=== PATIENT | female | born 1985 | race American Indian/Alaskan Native ===

== ENCOUNTER 2016-06-28 09:35 | Emergency (ER) | payer SELFPAY ==
[2016-06-28 10:06] VITALS: BP 108/74
--- NOTE | 2016-07-01 01:23 | ED Elopement Review ---
ED Pt Elopement review - Call Back decision Pt Call Back Decision: Pt to F/U with PMD
== END 2016-06-28 11:00 | disposition left against medical advice (07) ==
LOC: ED 09:35
DX: R07.9 Chest pain, unspecified (principal); R05 Cough; M79.601 Pain in right arm; R51 Headache; M79.1 Myalgia; Z53.21 Procedure and treatment not carried out due to patient leaving prior to being seen by health care provider
CPT/HCPCS: 93005; 93010

== ENCOUNTER 2016-12-14 09:13 | Emergency (ER) | payer SELFPAY ==
[2016-12-14 09:24] VITALS: BP 113/79
--- NOTE | 2016-12-14 22:10 | Emergency Department Report ---
Entered by LEON ARMANDO, acting as scribe for HAMILTON SAPP PAC. ED Allergic Reaction HPI - General Chief complaint: Allergic Reaction Stated complaint: POSSIBLE ALLERGIC REACTION,LEFT ARM PAIN Time Seen by Provider: 12/14/16 09:52 Source: patient Mode of arrival: Ambulatory Limitations: No Limitations - History of Present Illness Initial Comments: 31 y/o female with no significant PMHx presents to the ED c/o an allergic reaction that began morning. Patient states she is having an allergic reaction to taking someone else's prescribed Penicillin last night secondary her lower lip piercing becoming infected. Associated symptom includes lower lip swelling and 7/10 throbbing left upper side pain, but she denies any recent left side trauma, chest pain, SOB, rash, fever, chills, throat closing sensation, itching , nausea, vomiting, left arm pain, numbness, and tingling. Rates lower lip pain a 10/10 in severity, which she describes as aching in quality. Aggravated with movement and alleviated with nothing. Patient states she noticed green purulent drainage. Denies PMHx of cardiac problems. Denies taking any medication to relieve symptoms. LMP 11/21/2016. NKDA. [place] Complaint: allergic reaction -: This morning Exposure: medication (Penicillin) Symptoms: lip swelling (lower lip). denies: rash, itching, facial swelling, difficulty swallowing, difficulty breathing, orolingual swelling, hoarseness, syncopy, dizziness, nausea, vomiting, abdominal pain Severity: moderate Treatment Prior to Arrival: none Previous Allergy History: none - Related Data Previous Rx's Medication Instructions Recorded Last Taken Type metroNIDAZOLE [Flagyl] 500 mg PO BID #20 tablet 04/18/13 Unknown Rx traMADol [Ultram] 50 mg PO Q4HR PRN #15 tablet 04/18/13 Unknown Rx Doxycycline [Vibramycin CAP] 100 mg PO BID #30 capsule 09/05/13 Unknown Rx Acetamin/Codeine 120-12Mg/5 ml 5 ml PO TID PRN #30 ml 12/09/13 Unknown Rx [Tylenol/Codeine] Penicillin Vk [Veetids TAB] 500 mg PO QID #40 tablet 12/09/13 Unknown Rx Amoxicillin [Trimox CAP] 500 mg PO Q8H #30 capsule 06/23/14 Unknown Rx Docusate Sodium [Colace] 100 mg PO BID #40 capsule 06/23/14 Unknown Rx Famotidine [Pepcid] 20 mg PO BID #40 tablet 06/23/14 Unknown Rx predniSONE [Deltasone] 20 mg PO QDAY #5 tab 06/23/14 Unknown Rx Nitrofurantoin [place]/M-Cryst 100 mg PO Q12HR #14 capsule 10/13/14 Unknown Rx [Macrobid] Pnv95/Ferrous Fumarate/FA 1 each PO QDAY #90 tablet 10/13/14 Unknown Rx [ Vitamins] metroNIDAZOLE 0.75% [Metrogel 1 applicatio TP BID #1 tube 10/13/14 Unknown Rx 0.75%] Ondansetron [Zofran TAB] 4 mg PO Q6HR PRN #15 tablet 01/01/15 Unknown Rx Ibuprofen [Motrin 600 MG tab] 600 mg PO Q6HR PRN #30 tablet 05/28/15 Unknown Rx Azithromycin [Zithromax Z-PHU] 250 mg PO DAILY #6 tablet 12/14/16 Unknown Rx predniSONE [Deltasone] 20 mg PO QDAY #5 tab 12/14/16 Unknown Rx Allergies Allergy/AdvReac Type Severity Reaction Status Date / Time No Known Allergies Allergy Unverified 04/05/13 09:57 ED Review of Systems Comment: All other systems reviewed and negative Constitutional: denies: chills, fever Eyes: denies: eye pain, eye discharge, vision change ENT: other (lower lip swelling). denies: ear pain, throat pain Respiratory: denies: cough, orthopnea, shortness of breath, SOB with exertion, SOB at rest, stridor, wheezing Cardiovascular: denies: chest pain, palpitations, dyspnea on exertion, orthopnea , edema, syncope, paroxysmal nocturnal dyspnea Endocrine: no symptoms reported Gastrointestinal: denies: abdominal pain, nausea, vomiting, diarrhea Genitourinary: denies: urgency, dysuria, discharge Musculoskeletal: arthralgia (LT upper side pain). denies: back pain, joint swelling, myalgia Skin: denies: rash, lesions Neurological: denies: headache, weakness, numbness, paresthesias, confusion, abnormal gait, vertigo Psychiatric: denies: anxiety, depression Hematological/Lymphatic: denies: easy bleeding, easy bruising ED Past Medical Hx - Past Medical History Previous Medical History?: Yes Hx Hypertension: No Hx Heart Attack/AMI: No Hx Diabetes: No Hx Deep Vein Thrombosis: No Hx Renal Disease: No Hx Sickle Cell Disease: No Hx Seizures: No Hx Asthma: No Hx HIV: No Additional medical history: tubal 2006 - Surgical History Past Surgical History?: Yes Additional Surgical History: "tubal" "thigh surgery" - Family History Family history: no significant - Social History Smoking Status: Current Every Day Smoker Substance Use Type: Alcohol, Non Opiate Pain - Medications Home Medications: Home Medications Medication Instructions Recorded Confirmed Last Taken Type metroNIDAZOLE [Flagyl] 500 mg PO BID #20 tablet 04/18/13 05/28/15 Unknown Rx traMADol [Ultram] 50 mg PO Q4HR PRN #15 tablet 04/18/13 05/28/15 Unknown Rx Doxycycline [Vibramycin CAP] 100 mg PO BID #30 capsule 09/05/13 05/28/15 Unknown Rx Acetamin/Codeine 120-12Mg/5 ml 5 ml PO TID PRN #30 ml 12/09/13 05/28/15 Unknown Rx [Tylenol/Codeine] Penicillin Vk [Veetids TAB] 500 mg PO QID #40 tablet 12/09/13 05/28/15 Unknown Rx Amoxicillin [Trimox CAP] 500 mg PO Q8H #30 capsule 06/23/14 05/28/15 Unknown Rx Docusate Sodium [Colace] 100 mg PO BID #40 capsule 06/23/14 05/28/15 Unknown Rx Famotidine [Pepcid] 20 mg PO BID #40 tablet 06/23/14 05/28/15 Unknown Rx predniSONE [Deltasone] 20 mg PO QDAY #5 tab 06/23/14 05/28/15 Unknown Rx Nitrofurantoin [place]/M-Cryst 100 mg PO Q12HR #14 capsule 10/13/14 05/28/15 Unknown Rx [Macrobid] Pnv95/Ferrous Fumarate/FA 1 each PO QDAY #90 tablet 10/13/14 05/28/15 Unknown Rx [ Vitamins] metroNIDAZOLE 0.75% [Metrogel 1 applicatio TP BID #1 tube 10/13/14 05/28/15 Unknown Rx 0.75%] Ondansetron [Zofran TAB] 4 mg PO Q6HR PRN #15 tablet 01/01/15 05/28/15 Unknown Rx Ibuprofen [Motrin 600 MG tab] 600 mg PO Q6HR PRN #30 tablet 05/28/15 Unknown Rx Azithromycin [Zithromax Z-PHU] 250 mg PO DAILY #6 tablet 12/14/16 Unknown Rx predniSONE [Deltasone] 20 mg PO QDAY #5 tab 12/14/16 Unknown Rx ED Physical Exam - General Limitations: No Limitations General appearance: alert, in no apparent distress - Head Head exam: Present: atraumatic, normocephalic - Eye Eye exam: Present: normal appearance, PERRL, EOMI. Absent: scleral icterus, conjunctival injection, nystagmus, periorbital swelling, periorbital tenderness Pupils: Present: normal accommodation - ENT ENT exam: Present: normal orophraynx, mucous membranes moist, TM's normal bilaterally, normal external ear exam, other (LT lower lip has an abrasion near piercing with mild swelling and no purulent drainage noted). Absent: normal exam - Expanded ENT Exam Expanded Ear exam: Present: normal external inspection Mouth exam: Present: normal external inspection, tongue normal, other (oral airway is patent, uvula is midline). Absent: drooling, trismus, muffled voice, tongue elevation, laceration Teeth exam: Present: normal inspection Throat exam: Positive: normal inspection. Negative: tonsillar erythema, tonsillomegaly, tonsillar exudate, R peritonsillar mass, L peritonsillar mass - Neck Neck exam: Present: normal inspection, full ROM. Absent: tenderness, meningismus, lymphadenopathy, thyromegaly - Respiratory Respiratory exam: Present: normal lung sounds bilaterally, chest wall tenderness (mild lateral chest wall area). Absent: respiratory distress, wheezes, rales, rhonchi, stridor, accessory muscle use, decreased breath sounds - Cardiovascular Cardiovascular Exam: Present: regular rate, normal rhythm, normal heart sounds. Absent: systolic murmur, diastolic murmur, rubs, gallop - GI/Abdominal GI/Abdominal exam: Present: soft, normal bowel sounds. Absent: distended, tenderness, guarding, rebound, rigid - Extremities Exam Extremities exam: Present: normal inspection, full ROM (of both shoulder areas, sensation intact, mild ttp at the left lateral chest wall region), normal capillary refill. Absent: tenderness, pedal edema, joint swelling, calf tenderness - Back Exam Back exam: Present: normal inspection, full ROM. Absent: tenderness, CVA tenderness (R), CVA tenderness (L), muscle spasm, paraspinal tenderness, vertebral tenderness, rash noted - Neurological Exam Neurological exam: Present: alert, oriented X3, CN II-XII intact, normal gait, reflexes normal. Absent: motor sensory deficit - Psychiatric Psychiatric exam: Present: normal affect, normal mood - Skin Skin exam: Present: warm (no redness, swelling, or bruisin noted at the site), dry, intact, normal color. Absent: rash ED Course Vital Signs 12/14/16 09:19 Temperature 98.1 F Pulse Rate 60 Respiratory 18 Rate Blood Pressure 113/79 O2 Sat by Pulse 99 Oximetry ED Medical Decision Making - Medical Decision Making Pt was given prednisone 20 mg for the next 5 days to help bring some of the swelling around the lip, secondary to the impact of the piercing. Pt was also given azithromycin for the infection of the lip, per patient she developed an allergic reaction to PCN. Pt has reported left sided chest wall pain- appears to be reproducible, pt states that such pain comes and goes throughout her body. I had advised further cardiac and pulmonary work-up at this time, pt denied and signed AMA form for conducting EKG, CXR, and further cardiac/pulm work-up I have explained to her the risks of refusing she reported understanding. Pt was discharged from the ED in stable condition, vitals were stable, alert and oriented, and in no resp distress. ED Disposition Clinical Impression: Infection of lip Allergic Qualifiers: Encounter type: initial encounter Qualified Code(s): T78.40XA - Allergy, unspecified, initial encounter Disposition: TO HOME OR SELFCARE Is pt being admited?: No Does the pt Need Aspirin: No Condition: Stable Instructions: Acute Wound Care (ED), Antibiotic Medication Allergy (ED) Additional Instructions: Please avoid all NSAIDs while taking prednisone. Please follow- up with PCP within 3-5 days. Please return to the ED with any acute worsening such as chest pain, SOB, fever, chills, numbness, tingling, or left sided chest pain/ arm pain. Prescriptions: Azithromycin [Zithromax Z-PHU] 250 mg PO DAILY #6 tablet predniSONE [Deltasone] 20 mg PO QDAY #5 tab Referrals: PRIMARY CARE, [Primary Care Provider] - 3-5 Days [facility] [Outside] - 3-5 Days [facility] [Outside] - 3-5 Days Forms: Work/School Release Form(ED) This documentation as recorded by the TR hays JASMINE,accurately reflects the service I personally performed and the decisions made by me,HAMILTON SAPP, PAC.
== END 2016-12-14 11:32 | disposition home or self-care (01) ==
LOC: ED 09:13
DX: T78.40XA Allergy, unspecified, initial encounter (principal); K13.0 Diseases of lips; F17.200 Nicotine dependence, unspecified, uncomplicated
CPT/HCPCS: 81025; 99282

== ENCOUNTER 2017-05-29 11:47 | Emergency (ER) | payer SELFPAY ==
[2017-05-29 11:54] VITALS: BP 108/70
--- NOTE | 2017-05-29 14:21 | Emergency Department Report ---
Chief Complaint: Urogenital-Female Stated Complaint: ABDOMINAL PAIN Time Seen by Provider: 05/29/17 14:17 - HPI History of Present Illness: 31-year-old female presents with right-sided pelvic pain, sharp in nature, since last night. Mild discharge, no dysuria or vaginal bleeding. No past medical history other than previous ectopic tubal in 2006. She has not taken anything for her symptoms. - ROS Review of Systems: Patient has positive for pelvic pain and vaginal discharge. Patient is negative for dysuria, vaginal bleeding, fever, nausea, vomiting. - Exam Vital Signs: Vital Signs 05/29/17 11:50 Temperature 98.5 F Pulse Rate 67 Respiratory 18 Rate Blood Pressure 108/70 O2 Sat by Pulse 100 Oximetry Physical Exam: She is awake and alert and does not appear in any acute distress. MSE screening note: Focused history and physical exam performed. Due to findings the following was ordered: The patient will have a urinalysis, urine test and will need a pelvic/ transvaginal ultrasound. She will stay on the fast-track side of will be seen by one of the mid-level providers. ED Disposition for MSE Condition: Stable
--- NOTE | 2017-05-29 14:24 | Emergency Department Report ---
ED Female HPI - General Chief complaint: Urogenital-Female Stated complaint: ABDOMINAL PAIN Time Seen by Provider: 05/29/17 14:17 Source: patient Mode of arrival: Ambulatory Limitations: No Limitations - History of Present Illness Initial comments: 31-year-old female past medical history ovarian cysts presents with complaint of dull achy right-sided pelvic pain since last night. Denies any nausea vomiting fever or chills dysuria or increased urinary frequency purulent vaginal discharge or drainage alan foul-smelling urine. Patient is awake alert and oriented 3. Not in acute distress. MD Complaint: vaginal discharge, pelvic pain -: During the night, Last night Location: suprapubic Severity scale (0 -10): 5 Quality: dull Consistency: intermittent Improves with: none Are you Now?: No Last Menstrual Period: 04/21/17 EDC: 01/26/18 Associated Symptoms: denies other symptoms - Related Data Sexually active: Yes Previous Rx's Medication Instructions Recorded Last Taken Type metroNIDAZOLE [Flagyl] 500 mg PO BID #20 tablet 04/18/13 Unknown Rx traMADol [Ultram] 50 mg PO Q4HR PRN #15 tablet 04/18/13 Unknown Rx Doxycycline [Vibramycin CAP] 100 mg PO BID #30 capsule 09/05/13 Unknown Rx Acetamin/Codeine 120-12Mg/5 ml 5 ml PO TID PRN #30 ml 12/09/13 Unknown Rx [Tylenol/Codeine] Penicillin Vk [Veetids TAB] 500 mg PO QID #40 tablet 12/09/13 Unknown Rx Amoxicillin [Trimox CAP] 500 mg PO Q8H #30 capsule 06/23/14 Unknown Rx Docusate Sodium [Colace] 100 mg PO BID #40 capsule 06/23/14 Unknown Rx Famotidine [Pepcid] 20 mg PO BID #40 tablet 06/23/14 Unknown Rx predniSONE [Deltasone] 20 mg PO QDAY #5 tab 06/23/14 Unknown Rx Nitrofurantoin [place]/M-Cryst 100 mg PO Q12HR #14 capsule 10/13/14 Unknown Rx [Macrobid] Pnv95/Ferrous Fumarate/FA 1 each PO QDAY #90 tablet 10/13/14 Unknown Rx [ Vitamins] metroNIDAZOLE 0.75%(NF) [Metrogel 1 applicatio TP BID #1 tube 10/13/14 Unknown Rx 0.75%] Ondansetron [Zofran TAB] 4 mg PO Q6HR PRN #15 tablet 01/01/15 Unknown Rx Ibuprofen [Motrin 600 MG tab] 600 mg PO Q6HR PRN #30 tablet 05/28/15 Unknown Rx Azithromycin [Zithromax Z-PHU] 250 mg PO DAILY #6 tablet 12/14/16 Unknown Rx predniSONE [Deltasone] 20 mg PO QDAY #5 tab 12/14/16 Unknown Rx Acetaminophen/Codeine [Tylenol 1 tab PO Q6H PRN #6 tab 05/29/17 Unknown Rx /Codeine # 3 tab] Ibuprofen [Motrin] 800 mg PO Q8HR PRN #30 tablet 05/29/17 Unknown Rx Allergies Allergy/AdvReac Type Severity Reaction Status Date / Time No Known Allergies Allergy Unverified 04/05/13 09:57 ED Review of Systems ROS: Stated complaint: ABDOMINAL PAIN Other details as noted in HPI Constitutional: denies: chills, fever Eyes: denies: eye pain, eye discharge, vision change ENT: denies: ear pain, throat pain Respiratory: denies: cough, shortness of breath, wheezing Cardiovascular: denies: chest pain, palpitations Endocrine: no symptoms reported Gastrointestinal: denies: abdominal pain, nausea, diarrhea Genitourinary: denies: urgency, dysuria, discharge Musculoskeletal: denies: back pain, joint swelling, arthralgia Skin: denies: rash, lesions Neurological: denies: headache, weakness, paresthesias Psychiatric: denies: anxiety, depression Hematological/Lymphatic: denies: easy bleeding, easy bruising ED Past Medical Hx - Past Medical History Hx Hypertension: No Hx Heart Attack/AMI: No Hx Diabetes: No Hx Deep Vein Thrombosis: No Hx Renal Disease: No Hx Sickle Cell Disease: No Hx Seizures: No Hx Asthma: No Hx HIV: No Additional medical history: tubal 2006 - Surgical History Additional Surgical History: "tubal" "thigh surgery" - Social History Smoking Status: Never Smoker Substance Use Type: None - Medications Home Medications: Home Medications Medication Instructions Recorded Confirmed Last Taken Type metroNIDAZOLE [Flagyl] 500 mg PO BID #20 tablet 04/18/13 05/28/15 Unknown Rx traMADol [Ultram] 50 mg PO Q4HR PRN #15 tablet 04/18/13 05/28/15 Unknown Rx Doxycycline [Vibramycin CAP] 100 mg PO BID #30 capsule 09/05/13 05/28/15 Unknown Rx Acetamin/Codeine 120-12Mg/5 ml 5 ml PO TID PRN #30 ml 12/09/13 05/28/15 Unknown Rx [Tylenol/Codeine] Penicillin Vk [Veetids TAB] 500 mg PO QID #40 tablet 12/09/13 05/28/15 Unknown Rx Amoxicillin [Trimox CAP] 500 mg PO Q8H #30 capsule 06/23/14 05/28/15 Unknown Rx Docusate Sodium [Colace] 100 mg PO BID #40 capsule 06/23/14 05/28/15 Unknown Rx Famotidine [Pepcid] 20 mg PO BID #40 tablet 06/23/14 05/28/15 Unknown Rx predniSONE [Deltasone] 20 mg PO QDAY #5 tab 06/23/14 05/28/15 Unknown Rx Nitrofurantoin [place]/M-Cryst 100 mg PO Q12HR #14 capsule 10/13/14 05/28/15 Unknown Rx [Macrobid] Pnv95/Ferrous Fumarate/FA 1 each PO QDAY #90 tablet 10/13/14 05/28/15 Unknown Rx [ Vitamins] metroNIDAZOLE 0.75%(NF) [Metrogel 1 applicatio TP BID #1 tube 10/13/14 05/28/15 Unknown Rx 0.75%] Ondansetron [Zofran TAB] 4 mg PO Q6HR PRN #15 tablet 01/01/15 05/28/15 Unknown Rx Ibuprofen [Motrin 600 MG tab] 600 mg PO Q6HR PRN #30 tablet 05/28/15 Unknown Rx Azithromycin [Zithromax Z-PHU] 250 mg PO DAILY #6 tablet 12/14/16 Unknown Rx predniSONE [Deltasone] 20 mg PO QDAY #5 tab 12/14/16 Unknown Rx Acetaminophen/Codeine [Tylenol 1 tab PO Q6H PRN #6 tab 05/29/17 Unknown Rx /Codeine # 3 tab] Ibuprofen [Motrin] 800 mg PO Q8HR PRN #30 tablet 05/29/17 Unknown Rx ED Physical Exam - General Limitations: No Limitations General appearance: alert, in no apparent distress - Head Head exam: Present: atraumatic, normocephalic - Eye Eye exam: Present: normal appearance, PERRL, EOMI - ENT ENT exam: Present: mucous membranes moist - Neck Neck exam: Present: normal inspection - Respiratory Respiratory exam: Present: normal lung sounds bilaterally. Absent: respiratory distress - Cardiovascular Cardiovascular Exam: Present: regular rate, normal rhythm. Absent: systolic murmur, diastolic murmur, rubs, gallop - GI/Abdominal GI/Abdominal exam: Present: soft (abdomen soft nontender nondistended 4 quadrants), normal bowel sounds - External exam: Present: normal external exam Speculum exam: Present: normal speculum exam Bi-manual exam: Present: adnexal tenderness (right-sided adnexal discomfort on deep palpation) - Extremities Exam Extremities exam: Present: normal inspection - Back Exam Back exam: Present: normal inspection - Neurological Exam Neurological exam: Present: alert, oriented X3, CN II-XII intact, normal gait - Psychiatric Psychiatric exam: Present: normal affect, normal mood - Skin Skin exam: Present: warm, dry, intact, normal color. Absent: rash ED Course Vital Signs 05/29/17 11:50 Temperature 98.5 F Pulse Rate 67 Respiratory 18 Rate Blood Pressure 108/70 O2 Sat by Pulse 100 Oximetry ED Medical Decision Making - Lab Data Result diagrams: 05/29/17 14:29 05/29/17 14:29 - Medical Decision Making A/P: Right-sided ovarian cyst 1-Case discussed with Dr. Diaz who also examined and medically screened the patient 2-UA and wet prep unremarkable, GC cultures sent 3-Motrin 800mg when necessary, short course Tylenol 3 when necessary 4- I advised the patient to return to the ED for any inability to tolerate by mouth fevers and chills or temperatures above 100.4 Fahrenheit despite antipyretic use severe sharp abdominal pain unrelieved by Motrin or purulent vaginal discharge with irregular vaginal bleeding. patient stated she understood my instructions Critical care attestation.: If time is entered above; I have spent that time in minutes in the direct care of this critically ill patient, excluding procedure time. ED Disposition Clinical Impression: Pelvic pain Ovarian cyst Qualifiers: Laterality: right Qualified Code(s): N83.201 - Unspecified ovarian cyst, right side Disposition: DC- TO HOME OR SELFCARE Is pt being admited?: No Does the pt Need Aspirin: No Condition: Stable Instructions: Ovarian Cyst (ED) Prescriptions: Acetaminophen/Codeine [Tylenol /Codeine # 3 tab] 1 tab PO Q6H PRN #6 tab PRN Reason: Pain Ibuprofen [Motrin] 800 mg PO Q8HR PRN #30 tablet PRN Reason: Pain Referrals: PRIMARY CARE, [Primary Care Provider] - 3-5 Days [facility] [Provider Group] - 3-5 Days Forms: Work/School Release Form(ED) Time of Disposition: 17:11
[2017-05-29 14:33] LABS: HCG Qualitative,Urine Negative (Negative)
[2017-05-29 14:35] LABS: Bilirubin,Urine NEG (Negative); Blood,Urine NEG (Negative); Color,Urine Yellow (Yellow); Mucus,Urine 3+ /HPF; Protein,Urine <15 mg/dL mg/dL (Negative)
[2017-05-29 14:53] LABS: Basophils % (Auto) 0.6 % (0.0-1.8); Eosinophils # (Auto) 0.1 K/mm3 (0.0-0.4); Eosinophils % (Auto) 1.5 % (0.0-4.3); Hematocrit 43.6 % (30.3-42.9); Lymphocytes % (Auto) 35.3 % (13.4-35.0); Mean Corpuscular HGB Conc 32 % (30-34); Mean Corpuscular Hemoglobin 29 pg (28-32); Mean Corpuscular Volume 90 fl (79-97); Monocytes # (Auto) 0.4 K/mm3 (0.0-0.8); Monocytes % (Auto) 7.7 % (0.0-7.3); Platelet Count 265 K/mm3 (140-440); Red Blood Count 4.85 M/mm3 (3.65-5.03); Red Cell Distribution Width 14.3 % (13.2-15.2)
[2017-05-29 15:14] LABS: BUN/Creatinine Ratio 20; Blood Urea Nitrogen 14 mg/dL (7-17); Calcium 9.2 mg/dL (8.4-10.2); Hemolysis Index 11
--- NOTE | 2017-05-29 16:34 | Ultrasound Report ---
FINAL REPORT EXAM: US PELVIS DUPLEX DOPPLER COMP HISTORY: r-side pelvic pain please assess ovarian blood flow and right lower quadrant pain. LMP 04/21/2017 TECHNIQUE: Ultrasound of the pelvis using transabdominal and transvaginal imaging PRIORS: None. FINDINGS: Uterus: Uterus is elongated in size and normal and homogeneous in echogenicity without focal fibroid formation. The uterus measures 8.4 x 4.8 x 4.3 cm in size. A small 3 cm nabothian cyst in the cervix is seen. Endometrial stripe: Normal and uniform in thickness measuring 8.5 mm. Ovaries: Right ovary appears enlarged in size with normal echogenicity. The left ovary appears normal in size and echogenicity with normal blood flow bilaterally. The right ovary measures 4.7 x 2.0 x 3.3 cm and the left ovary measures 3.3 x 1.4 x 2.3 cm in size. There is an avascular complex cyst in the right ovary measuring 2.5 x 2.1 x 2.4 cm. The ultrasound characteristics contain multiple septations and internal debris. Due to the complexity, follow-up ultrasound 6-12 weeks is recommended. Other: There is no evidence for solid adnexal mass or free fluid in the cul-de-sac seen. IMPRESSION: 1. complex cyst in the right ovary for which follow-up ultrasound in 6-12 weeks is recommended. 2. Arterial and venous blood flow is noted to both ovaries.
[2017-05-29] MEDS ORDERED: MOTRIN PO ONE (17:14)
== END 2017-05-29 17:20 | disposition home or self-care (01) ==
LOC: ED 11:47
DX: N83.201 Unspecified ovarian cyst, right side (principal)
CPT/HCPCS: 36415; 76830; 80048; 81001; 81025; 84702; 85025; 86850; 86900; 86901; 87210; 87591; 93975

== ENCOUNTER 2017-08-08 02:07 | Emergency (ER) | payer SELFPAY | END 2017-08-08 02:15 | disposition left against medical advice (07) | LOC: ED 02:07 | DX: R10.9 Unspecified abdominal pain (principal); Z53.21 Procedure and treatment not carried out due to patient leaving prior to being seen by health care provider ==

== ENCOUNTER 2017-08-08 19:06 | Emergency (ER) | payer SELFPAY ==
[2017-08-08 19:15] VITALS: BP 129/81
[2017-08-08 21:03] LABS: Bilirubin,Urine NEG (Negative); Blood,Urine NEG (Negative); Color,Urine Yellow (Yellow); Mucus,Urine 1+ /HPF; Protein,Urine <15 mg/dL mg/dL (Negative)
[2017-08-08 21:05] LABS: HCG Qualitative,Urine Positive (Negative)
--- NOTE | 2017-08-08 22:25 | Emergency Department Report ---
<GLENNY DEVINE - Last Filed: 08/08/17 22:21> ED Female HPI - General Chief complaint: Urogenital-Female Stated complaint: LOWER ABDOMINAL PAIN Time Seen by Provider: 08/08/17 21:06 Source: patient Mode of arrival: Ambulatory Limitations: No Limitations - History of Present Illness Initial comments: 31-year-old -Polish female comes in complaining of right pelvic pain 1 day, she reports diagnosis of her right ovarian cyst back in May 2017. She denies any bleeding but has a iverson discharge. She reports her last menstrual period was 06/03/2017. Patient reports that she had a tubular ectopic in 2006 fallopian tube intact. She reports no past medical history currently takes no medications and has no known drug allergies. Patient denies any fever chills or nausea no vomiting. MD Complaint: vaginal bleeding, pelvic pain -: days(s) (1) Severity: moderate Severity scale (0 -10): 8 Consistency: intermittent Improves with: none Worsens with: movement Are you Now?: Yes Last Menstrual Period: 06/03/17 EDC: 03/10/18 Associated Symptoms: vaginal discharge, vaginal bleeding (iverson discharge) - Related Data Sexually active: Yes : 4 Para: 1 A: 2 (1 miscarriage and ectopic) Previous Rx's Medication Instructions Recorded Last Taken Type Pnv No.95/Ferrous Fum/Folic AC 1 each PO QDAY #90 tablet 08/08/17 Unknown Rx [ Formula Tablet] Allergies Allergy/AdvReac Type Severity Reaction Status Date / Time No Known Allergies Allergy Unverified 04/05/13 09:57 ED Review of Systems ROS: Stated complaint: LOWER ABDOMINAL PAIN Other details as noted in HPI Constitutional: denies: chills, fever Eyes: denies: eye pain, eye discharge, vision change ENT: denies: ear pain, throat pain Respiratory: denies: cough, shortness of breath, wheezing Cardiovascular: denies: chest pain, palpitations Endocrine: no symptoms reported Gastrointestinal: abdominal pain (right pelvic pain) Genitourinary: denies: urgency, dysuria, discharge Musculoskeletal: denies: back pain, joint swelling, arthralgia Neurological: denies: headache, weakness, paresthesias Psychiatric: denies: anxiety, depression Hematological/Lymphatic: denies: easy bleeding, easy bruising ED Past Medical Hx - Past Medical History Hx Hypertension: No Hx Heart Attack/AMI: No Hx Diabetes: No Hx Deep Vein Thrombosis: No Hx Renal Disease: No Hx Sickle Cell Disease: No Hx Seizures: No Hx Asthma: No Hx HIV: No Additional medical history: tubal 2007, right ovarian cyst - Surgical History Additional Surgical History: "tubal" "thigh surgery" - Social History Smoking Status: Never Smoker Substance Use Type: None - Medications Home Medications: Home Medications Medication Instructions Recorded Confirmed Last Taken Type Pnv No.95/Ferrous Fum/Folic AC 1 each PO QDAY #90 tablet 08/08/17 Unknown Rx [ Formula Tablet] ED Physical Exam - General Limitations: No Limitations General appearance: alert, in no apparent distress - Head Head exam: Present: atraumatic, normocephalic - Eye Eye exam: Present: normal appearance - ENT ENT exam: Present: mucous membranes moist - GI/Abdominal GI/Abdominal exam: Present: soft, tenderness (right lower pelvic pain), normal bowel sounds - Speculum exam: Present: vaginal discharge, cervical discharge Bi-manual exam: Present: adnexal tenderness - Extremities Exam Extremities exam: Present: normal inspection - Neurological Exam Neurological exam: Present: alert, oriented X3 - Psychiatric Psychiatric exam: Present: normal affect, normal mood ED Course Vital Signs 08/08/17 19:12 Temperature 98.5 F Pulse Rate 84 Respiratory 18 Rate Blood Pressure 129/81 O2 Sat by Pulse 100 Oximetry ED Medical Decision Making - Medical Decision Making Has been evaluated by this provider fast track. Urine test came back positive will check hCG Quant which came back greater than 10,000. Ultrasound waiting for results. Patient's had a history of ectopic without loss of fallopian tube. Patient reports that she has a right ovarian cysts. Critical care attestation.: If time is entered above; I have spent that time in minutes in the direct care of this critically ill patient, excluding procedure time. ED Disposition Clinical Impression: BV (bacterial vaginosis), Threatened in first trimester Qualifiers: Weeks of gestation: unspecified Qualified Code(s): Z34.90 - Encounter for supervision of normal , unspecified, unspecified trimester Disposition: DC-01 TO HOME OR SELFCARE Is pt being admited?: No Does the pt Need Aspirin: No Condition: Stable Instructions: Bacterial Vaginosis (ED), Threatened Miscarriage (ED) Additional Instructions: Repeat ultrasound within 1-2 weeks Prescriptions: Pnv No.95/Ferrous Fum/Folic AC [ Formula Tablet] 1 each PO QDAY #90 tablet Referrals: PRIMARY CARE, [Primary Care Provider] - 3-5 Days [facility] [Provider Group] - 3-5 Days [facility] [Provider Group] - 3-5 Days [facility] [Provider Group] - 3-5 Days [facility] [Provider Group] - 3-5 Days <SAUD MARIA - Last Filed: 08/09/17 00:06> ED Medical Decision Making - Medical Decision Making A/P: Pelvic pain, threatened AB versus demise 1- there is an IUP estimated approximately 6 weeks with no visible heart beat 2- I discussed case with ED attending then discussed case with Dr. Jackson educational therapist OBGYN. As per my discussion with Dr. Jackson regarding pts US report and lmp pt advised to repeat hCG and ultrasound within 1-2 weeks. It is possible that heartbeat is not present on US yet at 6 weeks. Patient reports no vaginal bleeding at this time 3-Tylenol when necessary 4- I advised patient to follow up with her DIRECTOR OF BILLING or repeat ultrasound in the ED within 1-2 weeks. I advised her to return for significant bleeding pain nausea and vomiting fevers or chills. Patient stated she understood my instructions. 5-I referred [email or web address] recommendations on BV treatment. I also discussed utility of treatment if pt is asymptomatic. Will refrain from flagyl at this time as pt denies any fishy odor, vaginal itching/pain at this time. I advised her to seek tx for vaginal discharge if she develops these symtpoms. Https:// [email or web address]_type =default&display_[email or web address] ED Disposition Is pt being admited?: No Does the pt Need Aspirin: No Time of Disposition: 00:05
[2017-08-08] MEDS ORDERED: TYLENOL PO ONE (22:53)
--- NOTE | 2017-08-08 23:30 | Ultrasound Report ---
FINAL REPORT PROCEDURE: US OB < = 14 WEEKS FETUS TECHNIQUE: Real-time transabdominal sonography of the uterus, placenta, amniotic fluid, adnexa, and fetus was performed with image documentation. Measurements were obtained to determine age/size. M-mode Doppler was used to document heartbeat. CPT 31851 HISTORY: +abd pain with preg and iverson discharge COMPARISON: Transvaginal OB ultrasound also performed today. FINDINGS: The report for this exam was generated using images from both the transabdominal and the transvaginal OB ultrasound both of which were performed today. A gestational sac with double decidual sign is visualized consistent with an intrauterine . Blunt-rump length measurement of a pole is 3.5 millimeters corresponding to an age is 6 weeks 0 days. Despite persistent imaging no heartbeat is seen. At this age heartbeat is expected. Intrauterine demise is suspected. There is a subchorionic hemorrhage visualized measuring 2 centimeter x 5 millimeter x 6 millimeter. Yolk sac is visualized. No uterine masses are identified. There is a 1.7 centimeter nodule in the right ovary with mild increased echogenicity and a hypoechoic nodule.. 2.8 centimeter heterogeneous cystic nodule seen in the left ovary. This may represent corpus luteum cyst of . Nodule in the left ovary measures 2.8 centimeter. IMPRESSION: Single intrauterine gestation visualized. By crown-rump length measurement estimated age is 6 weeks. Despite persistent imaging no heartbeat is seen suggesting intrauterine demise. Subchorionic hemorrhage is present as described above. Complex cystic structure left ovary may represent corpus luteum cyst of . Possible small hemorrhagic cyst right ovary.
--- NOTE | 2017-08-08 23:32 | Ultrasound Report ---
FINAL REPORT PROCEDURE: US OB TRANSVAGINAL TECHNIQUE: Real-time transvaginal sonography of the uterus, placenta, amniotic fluid, adnexa, and fetus was performed with image documentation. Measurements were obtained to determine age/size. M-mode Doppler was used to document heartbeat. CPT 03803 HISTORY: positive pelvic pain and now discharged COMPARISON: Transabdominal OB ultrasound also performed today. FINDINGS: The report for this exam was generated using images from both the transabdominal and the transvaginal OB ultrasound both of which were performed today. A gestational sac with double decidual sign is visualized consistent with an intrauterine . [place]-rump length measurement of a pole is 3.5 millimeters corresponding to an age is 6 weeks 0 days. Despite persistent imaging no heartbeat is seen. At this age heartbeat is expected. Intrauterine demise is suspected. There is a subchorionic hemorrhage visualized measuring 2 centimeter x 5 millimeter x 6 millimeter. Yolk sac is visualized. No uterine masses are identified. There is a 1.7 centimeter nodule in the right ovary with mild increased echogenicity and a hypoechoic nodule.. 2.8 centimeter heterogeneous cystic nodule seen in the left ovary. This may represent corpus luteum cyst of . Nodule in the left ovary measures 2.8 centimeter. IMPRESSION: Single intrauterine gestation visualized. By crown-rump length measurement estimated age is 6 weeks. Despite persistent imaging no heartbeat is seen suggesting intrauterine demise. Subchorionic hemorrhage is present as described above. Complex cystic structure left ovary may represent corpus luteum cyst of . Possible small hemorrhagic cyst right ovary.
== END 2017-08-09 00:07 | disposition home or self-care (01) ==
LOC: ED 19:06
DX: O20.0 Threatened abortion (principal); O23.591 Infection of other part of genital tract in pregnancy, first trimester; B96.89 Other specified bacterial agents as the cause of diseases classified elsewhere; Z3A.01 Less than 8 weeks gestation of pregnancy
CPT/HCPCS: 36415; 76801; 76817; 81001; 81025; 84702; 87210; 87591

== ENCOUNTER 2017-08-25 08:36 | Emergency (ER) | payer OTHER ==
[2017-08-25 09:03] VITALS: BP 98/68
[2017-08-25] MEDS ORDERED: TYLENOL PO ONE (09:39)
[2017-08-25] MEDS ORDERED: ZOFRAN IV ONE (09:39)
[2017-08-25] MEDS ORDERED: NACL 0.9% 1000 ML 1,000 ML IV ONE (09:39)
[2017-08-25 09:50] LABS: Bilirubin,Urine NEG (Negative); Blood,Urine NEG (Negative); Color,Urine Yellow (Yellow); Protein,Urine <15 mg/dL mg/dL (Negative); Urobilinogen,Urine < 2.0 mg/dL (<2.0)
[2017-08-25 10:22] LABS: Basophils % (Auto) 0.7 % (0.0-1.8); Eosinophils # (Auto) 0.1 K/mm3 (0.0-0.4); Eosinophils % (Auto) 1.4 % (0.0-4.3); Hematocrit 39.9 % (30.3-42.9); Lymphocytes # (Auto) 1.5 K/mm3 (1.2-5.4); Lymphocytes % (Auto) 31.4 % (13.4-35.0); Mean Corpuscular HGB Conc 33 % (30-34); Mean Corpuscular Hemoglobin 29 pg (28-32); Mean Corpuscular Volume 89 fl (79-97); Monocytes # (Auto) 0.5 K/mm3 (0.0-0.8); Monocytes % (Auto) 9.6 % (0.0-7.3); Platelet Count 216 K/mm3 (140-440); Red Cell Distribution Width 13.9 % (13.2-15.2)
[2017-08-25 10:28] LABS: Alanine Aminotransferase 8 units/L (7-56); Albumin 3.8 g/dL (3.9-5); BUN/Creatinine Ratio 20; Blood Urea Nitrogen 10 mg/dL (7-17); Calcium 8.6 mg/dL (8.4-10.2); Hemolysis Index 15; Lipase 14 units/L (13-60)
--- NOTE | 2017-08-25 15:13 | Emergency Department Report ---
HPI - General Chief Complaint: Abdominal Pain Time Seen by Provider: 08/25/17 09:32 - HPI HPI: The patient's 31-year-old female presents for evaluation of abdominal pain. The patient reports left lower quadrant abdominal pain for the past 3 weeks, cramping quality, mild in severity, worse with movement. She also reports associated nausea and nonbilious, nonbloody emesis. She shares that she did not follow-up for repeat beta hCG testing or repeat ultrasound after previous evaluation in this emergency department 2 weeks ago. The patient denies fever, chills, night sweats, diarrhea, blood in the stool, dark tarry stool, dysuria, hematuria, flank pain, genital discharge, inability to pass flatus. ED Past Medical Hx - Past Medical History Previous Medical History?: Yes Hx Hypertension: No Hx Heart Attack/AMI: No Hx Diabetes: No Hx Deep Vein Thrombosis: No Hx Renal Disease: No Hx Sickle Cell Disease: No Hx Seizures: No Hx Asthma: No Hx HIV: No Additional medical history: tubal 2006, right ovarian cyst - Surgical History Past Surgical History?: Yes Additional Surgical History: "tubal" "thigh surgery", Miscarriage, - Social History Smoking Status: Former Smoker - Medications Home Medications: Home Medications Medication Instructions Recorded Confirmed Last Taken Type Pnv No.95/Ferrous Fum/Folic AC 1 each PO QDAY #90 tablet 08/08/17 Unknown Rx [ Formula Tablet] ED Review of Systems ROS: Stated complaint: ABDONINAL PAIN Other details as noted in HPI Constitutional: denies: fever ENT: denies: throat or neck pain Respiratory: denies: cough, shortness of breath Cardiovascular: denies: chest pain Endocrine: denies unexplained weight loss or gain Gastrointestinal: reports: abdominal pain, nausea Genitourinary: denies: dysuria Musculoskeletal: denies: leg swelling Skin: denies: rash Neurological: denies: headache Hematological/Lymphatic: denies: easy bleeding or easy bruising Psych: denies sadness or hopelessness Physical Exam - Physical Exam Vital Signs: Vital Signs 08/25/17 08:57 Temperature 98 F Pulse Rate 80 Respiratory 18 Rate Blood Pressure 98/68 O2 Sat by Pulse 98 Oximetry Physical Exam: General: well-nourished, well-developed, no acute distress Head: Normocephalic, atraumatic Eyes: normal sclera ENT: Mucous membranes are pink and moist Neck: trachea midline, neck supple, No neck stiffness, no cervical adenopathy Respiratory: Breath sounds equal bilaterally, no wheezing, rales, or rhonchi Cardio: S1 and S2 present, no murmurs, rubs, gallops, capillary refill is brisk Abdomen: Normoactive bowel sounds, soft abdomen, suprapubic ttp, LLQ TTP, no rigidity, no guarding or rebound tenderness Musc: No pitting edema Skin: No rash Neuro: no facial drooping, normal speech Psych: Normal affect ED Course Vital Signs 08/25/17 08:57 Temperature 98 F Pulse Rate 80 Respiratory 18 Rate Blood Pressure 98/68 O2 Sat by Pulse 98 Oximetry ED Medical Decision Making - Lab Data Result diagrams: 08/25/17 10:01 08/25/17 10:01 - Medical Decision Making The patient was seen and examined by myself. The patient is placed on a cardiac rehabilitation program director and continuous pulse ox. On initial evaluation, the patient was found to be in no distress. Evaluation orders are placed. IV access is established and the patient is given 1 L normal saline fluid bolus and a tab of tylenol. Lab results revealed uptrending beta hCG of 85,000. Ultrasound the pelvis was ordered to rule out ectopic . While waiting for her ultrasound the patient became upset and stated that she would like to leave due to the long wait. The patient is informed of risks of refusal of further care/ stabilization and signing out AGAINST MEDICAL ADVICE, including potential risk of increased morbidity and/or , versus benefits of further treatment and stablization. The patient is informed of treatment options and outside facility options for futher treatment and definitive stablization. The patient is able to verbalize their treatment options and benefits of treatments, versus risks of refusal of further care. The patient is competent to make medical decisions and signed out AGAINST MEDICAL ADVICE. Critical care attestation.: If time is entered above; I have spent that time in minutes in the direct care of this critically ill patient, excluding procedure time. ED Disposition Clinical Impression: Abdominal pain, acute, left lower quadrant Abdominal pain during Qualifiers: Trimester: unspecified trimester Qualified Code(s): O26.899 - Other specified related conditions, unspecified trimester; R10.9 - Unspecified abdominal pain Disposition: LEFT AGAINST MED ADVICE Is pt being admited?: No Does the pt Need Aspirin: No Condition: Undetermined Instructions: Abdominal Pain (ED) Referrals: PRIMARY CARE, [Primary Care Provider] - 3-5 Days Forms: AMA Form Time of Disposition: 12:10
== END 2017-08-25 11:59 | disposition left against medical advice (07) ==
LOC: ED 08:36
DX: O26.899 Other specified pregnancy related conditions, unspecified trimester (principal); R10.32 Left lower quadrant pain; O21.9 Vomiting of pregnancy, unspecified; O99.330 Smoking (tobacco) complicating pregnancy, unspecified trimester; Z3A.00 Weeks of gestation of pregnancy not specified
CPT/HCPCS: 36415; 80053; 81001; 83690; 84702; 84703; 85025; 86900; 86901; 96374; 99284; J2405; J7030

== ENCOUNTER 2017-11-26 22:08 | Outpatient (CLI) | payer MEDICAID ==
[2017-11-26] MEDS ORDERED: LACTATED RINGERS 500 ML IV ONE (22:13)
[2017-11-26 22:31] VITALS: BP 101/67
[2017-11-26 22:42] LABS: Bilirubin,Urine NEG (Negative); Blood,Urine NEG (Negative); Color,Urine Yellow (Yellow); Mucus,Urine FEW /HPF; Protein,Urine <15 mg/dL mg/dL (Negative); Urobilinogen,Urine < 2.0 mg/dL (<2.0)
--- NOTE | 2017-11-26 23:21 | Ultrasound Report ---
FINAL REPORT PROCEDURE: US OB LIMITED TECHNIQUE: Real-time limited sonographic examination was performed for evaluation of placenta for each fetus with image documentation (1 or more fetuses). CPT 37830 HISTORY: vaginal spotting; r/o abruption COMPARISON: No prior studies are available for comparison. FINDINGS: Limited study today shows single living intrauterine gestation currently in the vertex presentation with a heart rate of 134 beats per minute. The placenta is located anterior and is grade 0,. No evidence of placenta abruption. The amount of amniotic fluid appears normal. Detailed exam of the anatomy was not performed as this was not requested. IMPRESSION: No evidence of placenta abruption. Single living intrauterine gestation visualized currently vertex presentation. Amount of amniotic fluid subjectively appears normal.
== END 2017-11-26 23:42 | disposition home or self-care (01) ==
LOC: TRG 22:08
PROVIDERS: ATTEND Obstetrics & Gynecology
DX: O26.892 Other specified pregnancy related conditions, second trimester (principal); Z3A.22 22 weeks gestation of pregnancy; Z91.018 Allergy to other foods; Z87.891 Personal history of nicotine dependence
CPT/HCPCS: 59025; 76815; 81001; J7120

== ENCOUNTER 2019-04-15 08:20 | Emergency (ER) | payer MEDICAID ==
[2019-04-15 08:31] VITALS: BP 106/72
--- NOTE | 2019-04-15 09:55 | Emergency Department Report ---
ED General Adult HPI - General Chief complaint: Vaginal Bleeding Stated complaint: FALL INJURY/STOMACH PAIN Time Seen by Provider: 04/15/19 09:42 Source: patient Mode of arrival: Ambulatory Limitations: No Limitations - History of Present Illness Initial comments: 33-year-old -[place] female patient without significant past medical history presents with complaints of intermittent headaches x several months and abnormal vaginal bleeding and lower abdominal cramping 1 month. She denies any dysuria, hematuria, vaginal discharge, or dyspareunia. She states she believes she is possibly and has history of ectopic . Patient states several months ago she fell and hit her head on a glass synced, resulting in loss of consciousness. Patient states she was never evaluated after this head injury and has had intermittent headaches since then. She denies any vision changes, dizziness, numbness/tingling/weakness in her limbs, or confusion. She rates her current headache as a 7/10 in severity and states she has not tried an y medications for it. - Related Data Previous Rx's Medication Instructions Recorded Last Taken Type HYDROcodone/APAP 5-325 [[place] 1 each PO Q6HR PRN #20 tablet 03/11/18 Unknown Rx 5/325] Ibuprofen [Motrin] 800 mg PO Q8HR PRN #60 tablet 03/11/18 Unknown Rx Ibuprofen [Motrin 800 MG tab] 800 mg PO Q8HR PRN #21 tablet 04/15/19 Unknown Rx Allergies Allergy/AdvReac Type Severity Reaction Status Date / Time coconut Allergy Anaphylaxis Verified 11/26/17 22:37 ED Review of Systems ROS: Stated complaint: FALL INJURY/STOMACH PAIN Other details as noted in HPI Constitutional: denies: chills, fever Eyes: as per HPI ENT: denies: hearing loss Respiratory: denies: cough, shortness of breath Cardiovascular: denies: chest pain Genitourinary: denies: urgency, dysuria, frequency, hematuria, discharge Skin: denies: rash, lesions Neurological: headache. denies: numbness, paresthesias, confusion, abnormal gait, vertigo Psychiatric: denies: auditory hallucinations, visual hallucinations Hematological/Lymphatic: denies: easy bleeding, easy bruising ED Past Medical Hx - Past Medical History Previous Medical History?: Yes Hx Hypertension: No Hx Diabetes: No Hx Deep Vein Thrombosis: No Hx Liver Disease: No Hx Renal Disease: No Hx Sickle Cell Disease: No Hx Seizures: No Hx Asthma: No Hx HIV: No Additional medical history: tubal 2007, right ovarian cyst - Surgical History Past Surgical History?: Yes Additional Surgical History: "tubal" "thigh surgery", Miscarriage, - Social History Smoking Status: Current Every Day Smoker Substance Use Type: None - Medications Home Medications: Home Medications Medication Instructions Recorded Confirmed Last Taken Type HYDROcodone/APAP 5-325 [[place] 1 each PO Q6HR PRN #20 tablet 03/11/18 Unknown Rx 5/325] Ibuprofen [Motrin] 800 mg PO Q8HR PRN #60 tablet 03/11/18 Unknown Rx Ibuprofen [Motrin 800 MG tab] 800 mg PO Q8HR PRN #21 tablet 04/15/19 Unknown Rx ED Physical Exam - General Limitations: No Limitations General appearance: alert, in no apparent distress - Head Head exam: Present: atraumatic, normocephalic - Eye Eye exam: Present: normal appearance, PERRL, EOMI. Absent: scleral icterus - ENT ENT exam: Present: normal exam - Neck Neck exam: Present: normal inspection, full ROM. Absent: tenderness - Respiratory Respiratory exam: Present: normal lung sounds bilaterally. Absent: respiratory distress - Cardiovascular Cardiovascular Exam: Present: regular rate, normal rhythm. Absent: systolic murmur, diastolic murmur, rubs, gallop - GI/Abdominal GI/Abdominal exam: Present: soft, normal bowel sounds. Absent: distended, tenderness, guarding, rebound, rigid - Extremities Exam Extremities exam: Present: normal inspection - Back Exam Back exam: Present: normal inspection, full ROM - Neurological Exam Neurological exam: Present: alert, oriented X3, CN II-XII intact, normal gait. Absent: motor sensory deficit - Expanded Neurological Exam Expanded Cerebellar function: Finger to Nose: Normal, Heel to Cheung: Normal, Romberg: Normal Motor strength exam: RUE: 5, LUE: 5, RLE: 5, LLE: 5 - Psychiatric Psychiatric exam: Present: normal affect, normal mood. Absent: anxious - Skin Skin exam: Present: warm, dry, intact, normal color. Absent: rash ED Course Vital Signs 04/15/19 08:29 Temperature 98.8 F Pulse Rate 75 Respiratory 16 Rate Blood Pressure 106/72 O2 Sat by Pulse 100 Oximetry ED Medical Decision Making - Lab Data Result diagrams: 04/15/19 09:59 04/15/19 09:59 Lab Results 04/15/19 04/15/19 04/15/19 Range/Units 09:59 09:59 09:59 WBC 4.6 (4.5-11.0) K/mm3 RBC 4.77 (3.65-5.03) M/mm3 Hgb 13.5 (10.1-14.3) gm/dl Hct 42.1 (30.3-42.9) % MCV 88 (79-97) fl MCH 29 (28-32) pg MCHC 33 (30-34) % RDW 14.0 (13.2-15.2) % Plt Count 267 (140-440) K/mm3 Lymph % (Auto) 32.9 (13.4-35.0) % Emanuel % (Auto) 9.9 H (0.0-7.3) % Eos % (Auto) 2.9 (0.0-4.3) % Baso % (Auto) 1.1 (0.0-1.8) % Lymph # 1.5 (1.2-5.4) K/mm3 Emanuel # 0.5 (0.0-0.8) K/mm3 Eos # 0.1 (0.0-0.4) K/mm3 Baso # 0.1 (0.0-0.1) K/mm3 Seg Neutrophils % 53.2 (40.0-70.0) % Seg Neutrophils # 2.4 (1.8-7.7) K/mm3 Sodium 139 (137-145) mmol/L Potassium 4.5 (3.6-5.0) mmol/L Chloride 104.6 (98-107) mmol/L Carbon Dioxide 21 L (22-30) mmol/L Anion Gap 18 mmol/L BUN 13 (7-17) mg/dL Creatinine 1.1 (0.7-1.2) mg/dL Estimated GFR > 60 ml/min BUN/Creatinine Ratio 12 % Glucose 73 (65-100) mg/dL Calcium 9.2 (8.4-10.2) mg/dL Total Bilirubin 0.70 (0.1-1.2) mg/dL AST 17 (5-40) units/L ALT 14 (7-56) units/L Alkaline Phosphatase 63 (35-129) units/L Total Protein 7.3 (6.3-8.2) g/dL Albumin 4.0 (3.9-5) g/dL Albumin/Globulin Ratio 1.2 % HCG, Quant < 2 (0-4) mIU/mL - Radiology Data Radiology results: report reviewed NONENHANCED CT SCAN OF THE HEAD: INDICATION / CLINICAL INFORMATION: 33 years Female; headache, r/o glass foreign body L posterior. TECHNIQUE: Routine CT head without contrast. All CT scans at this location are performed using CT dose reduction for ALARA by means of automated exposure control. COMPARISON: None. FINDINGS: BRAIN / INTRACRANIAL CONTENTS: No obvious radiopaque foreign body. No obvious focal area of scalp swelling or facial swelling. No acute hemorrhage, mass effect, midline shift, hydrocephalus, or acute, large territorial infarct. No chronic infarct or focal atrophy. Normal brain volume and ventricular/sulcal size for age. No significant white matter abnormality. CRANIOCERVICAL JUNCTION: No significant abnormality. ORBITS: No significant abnormality of visualized orbits. SINUSES / MASTOIDS: No significant abnormality of the visualized paranasal sinuses or mastoid air cells. ADDITIONAL FINDINGS: None. IMPRESSION: No obvious radiopaque foreign body; no focal area of scalp swelling Exact area of concern for foreign body in the head is not given. - Medical Decision Making 33-year-old -[place] female patient without significant past medical history presents with complaints of intermittent headaches x several months and abnormal vaginal bleeding and lower abdominal cramping 1 month. Neuro exam is normal. Vitals are normal. CT head is without acute findings. Labs are wnl. Headache has resolved with meds given here in ED. Pt is stable for discharge home. Recommend f/u with OBGYN concerning abnormal menses and neurology for headaches. Discussed strict return precautions in detail with pt who verbalizes understanding. Critical care attestation.: If time is entered above; I have spent that time in minutes in the direct care of this critically ill patient, excluding procedure time. ED Disposition Clinical Impression: Abnormal vaginal bleeding, Headaches due to old head injury Disposition: TO HOME OR SELFCARE Is pt being admited?: No Condition: Stable Instructions: Tension Headache (ED), Menorrhagia (ED) Prescriptions: Ibuprofen [Motrin 800 MG tab] 800 mg PO Q8HR PRN #21 tablet PRN Reason: Headache Referrals: ELHAM TORRES MD [Referring] - 3-5 Days
[2019-04-15 10:16] LABS: Basophils # (Auto) 0.1 K/mm3 (0.0-0.1); Basophils % (Auto) 1.1 % (0.0-1.8); Eosinophils # (Auto) 0.1 K/mm3 (0.0-0.4); Eosinophils % (Auto) 2.9 % (0.0-4.3); Hemoglobin 13.5 gm/dl (10.1-14.3); Lymphocytes # (Auto) 1.5 K/mm3 (1.2-5.4); Lymphocytes % (Auto) 32.9 % (13.4-35.0); Monocytes # (Auto) 0.5 K/mm3 (0.0-0.8); Monocytes % (Auto) 9.9 % (0.0-7.3)
[2019-04-15 10:20] LABS: Hematocrit 42.1 % (30.3-42.9); Mean Corpuscular HGB Conc 33 % (30-34); Mean Corpuscular Volume 88 fl (79-97); Platelet Count 267 K/mm3 (140-440); Red Blood Count 4.77 M/mm3 (3.65-5.03)
[2019-04-15 10:41] LABS: Alanine Aminotransferase 14 units/L (7-56); BUN/Creatinine Ratio 12; Blood Urea Nitrogen 13 mg/dL (7-17); Calcium 9.2 mg/dL (8.4-10.2); Hemolysis Index 10
[2019-04-15] MEDS ORDERED: BUTALB/ACETAMINOPHEN/CAFFEINE TAB PO ONE (11:22)
[2019-04-15] MEDS ORDERED: IBUPROFEN 800 MG TAB PO ONE (11:22)
--- NOTE | 2019-04-15 11:36 | Cat Scan Report ---
NONENHANCED CT SCAN OF THE HEAD: INDICATION / CLINICAL INFORMATION: 33 years Female; headache, r/o glass foreign body L posterior. TECHNIQUE: Routine CT head without contrast. All CT scans at this location are performed using CT dos e reduction for ALARA by means of automated exposure control. COMPARISON: None. FINDINGS: BRAIN / INTRACRANIAL CONTENTS: No obvious radiopaque foreign body. No obvious focal area of scalp swelling or facial swelling. No acute hemorrhage, mass effect, midline shift, hydrocephalus, or acute, large territorial infarct. No chronic infarct or focal atrophy. Normal brain volume and ventricular/sulcal size for age. No sig nificant white matter abnormality. CRANIOCERVICAL JUNCTION: No significant abnormality. ORBITS: No significant abnormality of visualized orbits. SINUSES / MASTOIDS: No significant abnormality of the visualized paranasal sinuses or mastoid air damaris ls. ADDITIONAL FINDINGS: None. IMPRESSION: No obvious radiopaque foreign body; no focal area of scalp swelling Exact area of concern for foreign body in the head is not given. Signer Name: Rolando Cardenas MD Signed: 04/15/2019 11:32 AM Workstation Name: [id number]
== END 2019-04-15 12:40 | disposition home or self-care (01) ==
LOC: ED 08:20
DX: N93.9 Abnormal uterine and vaginal bleeding, unspecified (principal); R51 Headache; F17.200 Nicotine dependence, unspecified, uncomplicated; Z98.890 Other specified postprocedural states; Z98.51 Tubal ligation status; Z79.899 Other long term (current) drug therapy; Z91.018 Allergy to other foods
CPT/HCPCS: 36415; 70450; 80053; 84702; 85025

== ENCOUNTER 2020-01-15 09:19 | Emergency (ER) | payer MEDICAID, OTHER ==
--- NOTE | 2020-01-15 11:17 | Emergency Department Report ---
ED General Adult HPI - General Chief complaint: Headache Stated complaint: DIARRHEA 3DAYS/STOOL RED Time Seen by Provider: 01/15/20 11:09 Source: patient Mode of arrival: Ambulatory Limitations: No Limitations - History of Present Illness Initial comments: 34-year-old -[place] female patient presents with complaints of diarrhea and abdominal pain x 3 days. She also admits to some bright red blood in her stools and dark stool. She rates her pain as a 8/10 in severity and describes it as aching and burning. Patient does report history of GERD, however she is not currently taking medication for this. She denies alcohol use, nausea/vomiting, fever, or history of abdominal surgeries. She states the pain is in her upper and mid abdomen mostly, however the pain is all over her abdomen. Patient also reports a mild headache that seems to worsen with movement. She rates her headache pain as a 2/10 in severity. Patient states that she has not eaten or drank anything in 3 days due to food/fluid intake causing her diarrhea. - Related Data Previous Rx's Medication Instructions Recorded Last Taken Type HYDROcodone/APAP 5-325 [[place] 1 each PO Q6HR PRN #20 tablet 03/11/18 Unknown Rx 5/325] Ibuprofen [Motrin] 800 mg PO Q8HR PRN #60 tablet 03/11/18 Unknown Rx Ibuprofen [Motrin 800 MG tab] 800 mg PO Q8HR PRN #21 tablet 04/15/19 Unknown Rx Loperamide [Imodium] 2 mg PO Q2HR PRN #10 capsule 01/15/20 Unknown Rx Pantoprazole [Protonix] 40 mg PO QAM 10 Days #10 tablet 01/15/20 Unknown Rx Sucralfate [Carafate] 1 gm PO Q6HR 10 Days #40 tablet 01/15/20 Unknown Rx Sulfamethoxazole/Trimethoprim 1 each PO BID 5 Days #10 tablet 01/15/20 Unknown Rx [Bactrim DS TAB] Allergies Allergy/AdvReac Type Severity Reaction Status Date / Time coconut Allergy Anaphylaxis Verified 11/26/17 22:37 ED Review of Systems ROS: Stated complaint: DIARRHEA 3DAYS/STOOL RED Other details as noted in HPI Constitutional: chills, malaise. denies: diaphoresis, fever, weakness ENT: denies: throat pain Respiratory: denies: cough, shortness of breath Cardiovascular: denies: chest pain Gastrointestinal: diarrhea, melena, hematochezia. denies: abdominal pain, nausea, vomiting, hematemesis Genitourinary: denies: urgency, dysuria, frequency, hematuria, discharge, dy spareunia Musculoskeletal: denies: back pain Skin: denies: rash, lesions Neurological: headache. denies: numbness, paresthesias, abnormal gait, other (Dizziness) Hematological/Lymphatic: denies: easy bleeding, easy bruising, swollen glands ED Past Medical Hx - Past Medical History Previous Medical History?: No Hx Hypertension: No Hx Diabetes: No Hx Deep Vein Thrombosis: No Hx Liver Disease: No Hx Renal Disease: No Hx Sickle Cell Disease: No Hx Seizures: No Hx Asthma: No Hx HIV: No Additional medical history: tubal 2007, right ovarian cyst - Surgical History Past Surgical History?: Yes Additional Surgical History: "tubal" "thigh surgery", Miscarriage, - Social History Smoking Status: Current Every Day Smoker Substance Use Type: None - Medications Home Medications: Home Medications Medication Instructions Recorded Confirmed Last Taken Type HYDROcodone/APAP 5-325 [[place] 1 each PO Q6HR PRN #20 tablet 03/11/18 Unknown Rx 5/325] Ibuprofen [Motrin] 800 mg PO Q8HR PRN #60 tablet 03/11/18 Unknown Rx Ibuprofen [Motrin 800 MG tab] 800 mg PO Q8HR PRN #21 tablet 04/15/19 Unknown Rx Loperamide [Imodium] 2 mg PO Q2HR PRN #10 capsule 01/15/20 Unknown Rx Pantoprazole [Protonix] 40 mg PO QAM 10 Days #10 tablet 01/15/20 Unknown Rx Sucralfate [Carafate] 1 gm PO Q6HR 10 Days #40 tablet 01/15/20 Unknown Rx Sulfamethoxazole/Trimethoprim 1 each PO BID 5 Days #10 tablet 01/15/20 Unknown Rx [Bactrim DS TAB] ED Physical Exam - General Limitations: No Limitations General appearance: alert, in no apparent distress - Head Head exam: Present: atraumatic, normocephalic - Eye Eye exam: Present: normal appearance. Absent: scleral icterus - Neck Neck exam: Present: normal inspection - Respiratory Respiratory exam: Present: normal lung sounds bilaterally. Absent: respiratory distress - Cardiovascular Cardiovascular Exam: Present: regular rate, normal rhythm - GI/Abdominal GI/Abdominal exam: Present: soft, tenderness (Generalized, worse and radha- umbilical and epigastric area), guarding, normal bowel sounds. Absent: distende d, rigid - Extremities Exam Extremities exam: Present: normal inspection - Back Exam Back exam: Present: normal inspection - Neurological Exam Neurological exam: Present: alert, oriented X3 - Psychiatric Psychiatric exam: Present: normal affect, normal mood - Skin Skin exam: Present: warm, dry, intact, normal color. Absent: rash, cyanosis, diaphoretic, erythema, ecchymosis ED Course Vital Signs 01/15/20 01/15/20 01/15/20 09:24 16:31 16:43 Temperature 98.7 F 98.0 F 98.2 F Pulse Rate 87 66 65 Respiratory 16 18 18 Rate Blood Pressure 106/74 Blood Pressure 117/80 106/74 [Right] O2 Sat by Pulse 98 99 100 Oximetry ED Medical Decision Making - Lab Data Result diagrams: 01/15/20 12:27 01/15/20 12:27 Lab Results 01/15/20 01/15/20 01/15/20 Range/Units 12:27 12:27 12:27 WBC 2.7 L (4.5-11.0) K/mm3 RBC 5.31 H (3.65-5.03) M/mm3 Hgb 15.3 H (10.1-14.3) gm/dl Hct 46.6 H (30.3-42.9) % MCV 88 (79-97) fl MCH 29 (28-32) pg MCHC 33 (30-34) % RDW 14.6 (13.2-15.2) % Plt Count 258 (140-440) K/mm3 [place] % (Auto) Location Director Sodium 138 (137-145) mmol/L Potassium 3.9 (3.6-5.0) mmol/L Chloride 98.8 (98-107) mmol/L Carbon Dioxide 25 (22-30) mmol/L Anion Gap 18 mmol/L BUN 10 (7-17) mg/dL Creatinine 0.9 (0.6-1.2) mg/dL Estimated GFR > 60 ml/min BUN/Creatinine Ratio 11 % Glucose 90 (65-100) mg/dL Calcium 9.8 (8.4-10.2) mg/dL Total Bilirubin 0.50 (0.1-1.2) mg/dL AST 20 (5-40) units/L ALT 15 (7-56) units/L Alkaline Phosphatase 72 (35-129) units/L Total Protein 7.9 (6.3-8.2) g/dL Albumin 4.4 (3.9-5) g/dL Albumin/Globulin Ratio 1.3 % Lipase 50 (13-60) units/L HCG, Qual Negative (Negative) Urine Color (Yellow) Urine Turbidity (Clear) Urine pH (5.0-7.0) Ur Specific [place] (1.003-1.030) Urine Protein (Negative) mg/dL Urine Glucose (UA) (Negative) mg/dL Urine Ketones (Negative) mg/dL Urine Blood (Negative) Urine Nitrite (Negative) Ur Reducing Substances Urine Bilirubin (Negative) Urine Ictotest Urine Urobilinogen (<2.0) mg/dL Ur Leukocyte Esterase (Negative) Urine WBC (Auto) (0.0-6.0) /HPF Urine RBC (Auto) (0.0-6.0) /HPF U Epithel Cells (Auto) (0-13.0) /HPF Urine Bacteria (Auto) (Negative) /HPF Calcium Oxalate Crystal Urine Mucus /HPF Urine HCG, Qual (Negative) 01/15/20 Range/Units 13:31 WBC (4.5-11.0) K/mm3 RBC (3.65-5.03) M/mm3 Hgb (10.1-14.3) gm/dl Hct (30.3-42.9) % MCV (79-97) fl MCH (28-32) pg MCHC (30-34) % RDW (13.2-15.2) % Plt Count (140-440) K/mm3 [place] % (Auto) Sodium (137-145) mmol/L Potassium (3.6-5.0) mmol/L Chloride (98-107) mmol/L Carbon Dioxide (22-30) mmol/L Anion Gap mmol/L BUN (7-17) mg/dL Creatinine (0.6-1.2) mg/dL Estimated GFR ml/min BUN/Creatinine Ratio % Glucose (65-100) mg/dL Calcium (8.4-10.2) mg/dL Total Bilirubin (0.1-1.2) mg/dL AST (5-40) units/L ALT (7-56) units/L Alkaline Phosphatase (35-129) units/L Total Protein (6.3-8.2) g/dL Albumin (3.9-5) g/dL Albumin/Globulin Ratio % Lipase (13-60) units/L HCG, Qual (Negative) Urine Color [place] (Yellow) Urine Turbidity Slightly-cloudy (Clear) Urine pH 5.0 (5.0-7.0) Ur Specific [place] 1.033 H (1.003-1.030) Urine Protein 30 mg/dl (Negative) mg/dL Urine Glucose (UA) Neg (Negative) mg/dL Urine Ketones Tr (Negative) mg/dL Urine Blood Sm (Negative) Urine Nitrite Neg (Negative) Ur Reducing Substances Not Reportable Urine Bilirubin Neg (Negative) Urine Ictotest Not Reportable Urine Urobilinogen < 2.0 (<2.0) mg/dL Ur Leukocyte Esterase Sm (Negative) Urine WBC (Auto) 35.0 H (0.0-6.0) /HPF Urine RBC (Auto) 9.0 (0.0-6.0) /HPF U Epithel Cells (Auto) 20.0 H (0-13.0) /HPF Urine Bacteria (Auto) 1+ (Negative) /HPF Calcium Oxalate Crystal 2+ Urine Mucus 3+ /HPF Urine HCG, Qual Negative (Negative) - Radiology Data Radiology results: report reviewed CT ABDOMEN AND PELVIS WITH CONTRAST HISTORY: Mid and upper abdominal pain COMPARISON: None TECHNIQUE: Routine abdominal and pelvic CT exam performed following intravenous contrast administration. Patient received 100 mL IV Omnipaque 300. All CT scans at this location are pe rformed using CT dose reduction for ALARA by means of automated exposure control. FINDINGS: CT ABDOMEN: Lung Bases: No significant abnormality. Liver: No significant abnormality. Biliary: No significant abnormality. Spleen: No significant abnormality. Unenlarged. Pancreas: No significant abnormality. Adrenals: No significant abnormality. Kidneys: No significant abnormality. Lymphatics: No lymphadenopathy. Vasculature: No significant abnormality. Bowel/Peritoneum: No significant abnormality. No free air. No free fluid. Normal appendix. CT PELVIC: : Uterus and ovaries appear normal for age. There is a small amount of physiologic free fluid in the pelvis. Lymphatics: No lymphadenopathy. Osseous Structures: No aggressive appearing osseous lesions. Additional Findings: None IMPRESSION: 1. No acute findings. - Medical Decision Making 34-year-old -[place] female patient presents with complaints of diarrhea and black stools x 3 days. She also admits to some bright red blood in her stools and abdominal pain. She rates her pain as a 8/10 in severity and describes it as aching and burning. Patient does report history of GERD, however she is not currently taking medication for this. She denies alcohol use, nausea/vomiting, fever, or history of abdominal surgeries. She states the pain is in her upper and mid abdomen mostly, however the pain is all over her ab domen. Patient also reports a mild headache that seems to worsen with movement. She rates her headache pain as a 2/10 in severity. Patient states that she has not eaten or drank anything in 3 days due to food/fluid intake causing her diarrhea. Tenderness to palpation noted in the periumbilical region and epigastric region on exam. Patient declined fecal occult test. CBC shows mild leukopenia. No significant abnormalities noted on CMP or lipase. UA shows elevated WBCs. Patient denies any dysuria/hematuria/urinary frequency, however she does admit to vaginal discharge x1 week. Discussed need for pelvic exam to rule out STIs/PID, patient declines and states she will follow-up with her [facility] because they are much faster. No tenderness to palpation noted in the suprapubic region on exam. CT abdomen is negative for any acute abnormalities. Patient given GI cocktail and Protonix and states her symptoms have improved. Will treat for UTI and gastritis. Recommend follow-up with GI and [facility] within 2 days. Her vitals are normal, she is well-appearing, stable for discharge home. Strict return precautions were discussed in detail with patient who verbalizes understanding peer Critical care attestation.: If time is entered above; I have spent that time in minutes in the direct care of this critically ill patient, excluding procedure time. ED Disposition Clinical Impression: Acute diarrhea GERD (gastroesophageal reflux disease) Qualifiers: Esophagitis presence: esophagitis presence not specified Qualified Code(s): K21.9 - Gastro-esophageal reflux disease without esophagitis Leukopenia Qualifiers: Leukopenia type: neutropenia Neutropenia type: other Qualified Code(s): D70.8 - Other neutropenia UTI (urinary tract infection) Qualifiers: Urinary tract infection type: acute cystitis Hematuria presence: without hematuria Qualified Code(s): N30.00 - Acute cystitis without hematuria Disposition: - TO HOME OR SELFCARE Is pt being admited?: No Condition: Stable Instructions: Urinary Tract Infection in Women (ED), Gastroesophageal Reflux Disease (ED), Acute Diarrhea (ED) Prescriptions: Sulfamethoxazole/Trimethoprim [Bactrim DS TAB] 1 each PO BID 5 Days #10 tablet Sucralfate [Carafate] 1 gm PO Q6HR 10 Days #40 tablet Loperamide [Imodium] 2 mg PO Q2HR PRN #10 capsule PRN Reason: Diarrhea Pantoprazole [Protonix] 40 mg PO QAM 10 Days #10 tablet Referrals: [facility] [Provider Group] - 3-5 Days [facility] [Provider Group] - 2-3 Days Forms: Work/School Release Form(ED)
[2020-01-15] MEDS ORDERED: ONDANSETRON 4 MG/2 ML INJ IV ONE (11:39)
[2020-01-15] MEDS ORDERED: SODIUM CHLORIDE 0.9% 1000 ML 1,000 ML IV ONE (11:39)
[2020-01-15] MEDS ORDERED: MORPHINE 4 MG/1 ML INJ IV ONE (11:39)
[2020-01-15 13:20] LABS: Alanine Aminotransferase 15 units/L (7-56); Albumin 4.4 g/dL (3.9-5); BUN/Creatinine Ratio 11; Blood Urea Nitrogen 10 mg/dL (7-17); Calcium 9.8 mg/dL (8.4-10.2); Hemolysis Index 2
[2020-01-15 13:28] LABS: Hematocrit 46.6 % (30.3-42.9); Hemoglobin 15.3 gm/dl (10.1-14.3); Mean Corpuscular HGB Conc 33 % (30-34); Mean Corpuscular Volume 88 fl (79-97); Platelet Count 258 K/mm3 (140-440); Red Blood Count 5.31 M/mm3 (3.65-5.03); Red Cell Distribution Width 14.6 % (13.2-15.2)
[2020-01-15 14:06] LABS: HCG Qualitative,Urine Negative (Negative)
[2020-01-15 14:08] LABS: Bacteria,Urine 1+ /HPF (Negative); Bilirubin,Urine NEG (Negative); Blood,Urine SM (Negative); Calcium Oxalate Crystals,Urine 2+; Color,Urine Amber (Yellow); Mucus,Urine 3+ /HPF; Urobilinogen,Urine < 2.0 mg/dL (<2.0)
--- NOTE | 2020-01-15 14:35 | Cat Scan Report ---
CT ABDOMEN AND PELVIS WITH CONTRAST HISTORY: Mid and upper abdominal pain COMPARISON: None TECHNIQUE: Routine abdominal and pelvic CT exam performed following intravenous contrast administrat ion. Patient received 100 mL IV Omnipaque 300. All CT scans at this location are performed using CT d ose reduction for [employer] by means of automated exposure control. FINDINGS: CT ABDOMEN: Lung Bases: No significant abnormality. Liver: No significant abnormality. Biliary: No significant abnormality. Spleen: No significant abnormality. Unenlarged. Pancreas: No significant abnormality. Adrenals: No significant abnormality. Kidneys: No significant abnormality. Lymphatics: No lymphadenopathy. Vasculature: No significant abnormality. Bowel/Peritoneum: No significant abnormality. No free air. No free fluid. Normal appendix. CT PELVIC: : Uterus and ovaries appear normal for age. There is a small amount of physiologic free fluid in th e pelvis. Lymphatics: No lymphadenopathy. Osseous Structures: No aggressive appearing osseous lesions. Additional Findings: None IMPRESSION: 1. No acute findings. Signer Name: Elian Gregory MD Signed: 01/15/2020 2:30 PM Workstation Name: [id number]
[2020-01-15] MEDS ORDERED: ALUM-MAG HYDROXIDE-SIMETHICONE 200-200-20MG/5ML ORAL LIQD 30 ML PO ONE (14:50)
[2020-01-15] MEDS ORDERED: LIDOCAINE VISCOUS 2% 15 ML ORAL LIQD PO ONE (14:50)
[2020-01-15] MEDS ORDERED: PANTOPRAZOLE 40 MG INJ IV ONE (14:50)
[2020-01-15 15:25] LABS: Band Neutrophils # (Manual) 0.1 K/mm3; Platelet Estimate Consistent w Auto; RBC Morphology Normal; Total Cells Counted 100
[2020-01-15 16:43] VITALS: BP 106/74
== END 2020-01-15 16:42 | disposition home or self-care (01) ==
LOC: ED 09:19
DX: N39.0 Urinary tract infection, site not specified (principal); R19.7 Diarrhea, unspecified; K21.9 Gastro-esophageal reflux disease without esophagitis; D72.819 Decreased white blood cell count, unspecified; F17.200 Nicotine dependence, unspecified, uncomplicated; Z98.890 Other specified postprocedural states; Z79.1 Long term (current) use of non-steroidal anti-inflammatories (NSAID); Z79.899 Other long term (current) drug therapy; Z88.8 Allergy status to other drugs, medicaments and biological substances
CPT/HCPCS: 36415; 74177; 80053; 81001; 81025; 83690; 84703; 85007; 85025; 87086; 96361; 96374; 96375; 99284; C9113; J2270; J2405; J7030; Q9967

== ENCOUNTER 2020-08-03 22:02 | Emergency (ER) | payer OTHER ==
[2020-08-04 00:07] VITALS: BP 104/69
--- NOTE | 2020-08-04 01:30 | Emergency Department Report ---
Chief Complaint: Headache Stated Complaint: THROAT SWOLLEN/HEADACHE Time Seen by Provider: 08/04/20 01:22 - HPI History of Present Illness: 34-year-old -[place] female presents to the emergency room stating she has throat swelling and headache after getting her Covid vaccine shot today at 1230. Patient states this is her first injection. Patient denies any trouble breathing denies any trouble swallowing able to drink no fever no chills no nausea no vomiting. Patient states she took Tylenol about 1:30 PM has not taken anything else. She denies any past medical history takes no medications on a daily basis. Patient does report left arm soreness where injection states that it has moved over to her back. Denies any trauma to her back - Exam Vital Signs: Vital Signs 08/04/20 00:02 Temperature 98.6 F Pulse Rate 68 Respiratory 16 Rate Blood Pressure 104/69 O2 Sat by Pulse 99 Oximetry Physical Exam: General: Awake, appropriately interactive, no acute distress. HEENT: Oral mucosa is moist oropharynx is patent no tonsillary hypertrophy or true exudate or erythematous. Neck: Supple. Full range of motion intact. Cardiovascular: Normal peripheral perfusion. Pulmonary: No respiratory distress. Patient is speaking normally without use of accessory muscles. Skin: No apparent rashes or lesions. Neurological: No facial asymmetry. Speech is clear. Follows commands. Patient is alert and oriented. Musculoskeletal: Full range of motion, no crepitus. No tenderness to palpate nonerythematous no edema test appreciated. Able to bear weight and ambulate without difficulty. Distal neurovascular and motor/sensory function is intact. Psych: Cooperative. Appropriate mood and affect. MSE screening note: Focused history and physical exam performed. Due to findings the following was ordered: 34-year-old -[place] female presents to the emergency room stating she has throat swelling and headache after getting her Covid vaccine shot today at 1230. Patient states this is her first injection. Patient denies any trouble breathing denies any trouble swallowing able to drink no fever no chills no nausea no vomiting. Patient states she took Tylenol about 1:30 PM has not taken anything else. She denies any past medical history takes no medications on a daily basis. Patient does report left arm soreness where injection states that it has moved over to her back. Denies any trauma to her back Discussed and reassured patient that her vital signs are stable her throat is patent she can take Tylenol ibuprofen for the soreness. Patient is referred to her primary care provider. ED Disposition for MSE Disposition: MED SCREENING EXAM-LEFT Is pt being admited?: No Does the pt Need Aspirin: No Condition: Stable Additional Instructions: Take Tylenol or ibuprofen for discomfort. Increase fluid intake. Referrals: PRIMARY CARE, [Primary Care Provider] - 3-5 Days [facility] [Provider Group] - 3-5 Days Forms: Work/School Release Form(ED)
== END 2020-08-04 01:30 | disposition left against medical advice (07) ==
LOC: ED 22:02
DX: R51.9 Headache, unspecified (principal); Z53.21 Procedure and treatment not carried out due to patient leaving prior to being seen by health care provider

== ENCOUNTER 2020-11-29 18:25 | Emergency (ER) | payer OTHER ==
[2020-11-29 19:43] LABS: Bilirubin,Urine NEG (Negative); Blood,Urine SM (Negative); Color,Urine Yellow (Yellow); Mucus,Urine FEW /HPF; Protein,Urine <15 mg/dL mg/dL (Negative); Urobilinogen,Urine < 2.0 mg/dL (<2.0); WBC,Urine < 1.0 /HPF (0.0-6.0)
[2020-11-29] MEDS ORDERED: SODIUM CHLORIDE 0.9% 1000 ML 1,000 ML IV ONE (20:04)
[2020-11-29] MEDS ORDERED: FAMOTIDINE 20 MG/2 ML INJ IV ONE (20:04)
[2020-11-29] MEDS ORDERED: ONDANSETRON 4 MG/2 ML INJ IV ONE (20:04)
[2020-11-29] MEDS ORDERED: DICYCLOMINE 20 MG TAB PO ONE (20:04)
[2020-11-29] MEDS ORDERED: BUTALB/ACETAMINOPHEN/CAFFEINE TAB PO ONE (20:05)
[2020-11-29 20:14] LABS: Basophils % (Auto) 0.5 % (0.0-1.8); Eosinophils # (Auto) 0.2 K/mm3 (0.0-0.4); Eosinophils % (Auto) 3.1 % (0.0-4.3); Hemoglobin 13.4 gm/dl (10.1-14.3); Mean Corpuscular HGB Conc 33 % (30-34); Mean Corpuscular Volume 90 fl (79-97); Monocytes # (Auto) 0.5 K/mm3 (0.0-0.8); Monocytes % (Auto) 9.9 % (0.0-7.3); Platelet Count 243 K/mm3 (140-440); Red Blood Count 4.57 M/mm3 (3.65-5.03); Red Cell Distribution Width 14.2 % (13.2-15.2)
[2020-11-29 20:33] LABS: Alanine Aminotransferase 15 units/L (7-56); BUN/Creatinine Ratio 18; Blood Urea Nitrogen 16 mg/dL (7-17); Calcium 9.4 mg/dL (8.4-10.2); Hemolysis Index 7
--- NOTE | 2020-11-29 20:59 | XRay Report ---
CHEST 1 VIEW 11/29/2020 8:26 PM INDICATION / CLINICAL INFORMATION: DIZZINESS. COMPARISON: 06/23/14 FINDINGS: SUPPORT DEVICES: None. HEART / MEDIASTINUM: No significant abnormality. LUNGS / PLEURA: No significant pulmonary or pleural abnormality. No pneumothorax. ADDITIONAL FINDINGS: No significant additional findings. IMPRESSION: 1. No acute findings. Signer Name: Salena Crzu MD Signed: 11/29/2020 8:55 PM Workstation Name: [id number]
[2020-11-29 22:18] VITALS: BP 96/65
--- NOTE | 2020-11-30 01:35 | Emergency Department Report ---
ED Abdominal Pain HPI - General Chief Complaint: Abdominal Pain Stated Complaint: FAINTED 2X/ BODY BODY Source: patient Mode of arrival: Ambulatory Limitations: No Limitations - History of Present Illness Initial Comments: Patient is a 35-year-old -Swazi female with past medical history of GERD and who presents to the ED with complaint of acute onset persistent diffuse abdominal pain that radiates to the epigastric area, nausea and vomiting with diarrhea for the last 2 days. Patient also complains of 2 near syncopal episodes in 24 hours while at home and at work. Patient states that the initial near syncopal episode occurred while she was upright walking at work in a hot environment and one of her colleagues at work to assist to lay down instead of falling. Patient states that the second near syncopal episode occurred prior to arrival in the ED while she was upright in the kitchen cooking and one of the family members had to help her out and settle down. Patient states that she has been feeling generalized weakness and persistent abdominal pain with nausea and vomiting. Patient denies fever, chills, chest pain or shortness of breath, cough, sore throat, change in vision, dysuria, urinary frequency and urgency, vaginal bleeding, vaginal discharge, traumatic injury, head or neck injuries or fall. MD Complaint: abdominal pain, other (nausea, vomiting, diarrhea and generalized weakness and fatigue; 2 near syncopal episodes) -: Sudden, days(s) (2) Location: epigastric Radiation: none Migration to: no migration Severity: severe Severity scale (0 -10): 8 Quality: cramping, sharp Consistency: constant Improves With: nothing Worsens With: nothing Associated Symptoms: denies other symptoms, nausea, vomiting, diarrhea, anorexia, syncope ( x 2). denies: fever, dysuria, hematemesis, hematochezia, melena, hematuria - Related Data LMP Date: 11/01/20 Previous Rx's Medication Instructions Recorded Last Taken Type HYDROcodone/APAP 5-325 [[place] 1 each PO Q6HR PRN #20 tablet 03/11/18 Unknown Rx 5/325] Ibuprofen [Motrin] 800 mg PO Q8HR PRN #60 tablet 03/11/18 Unknown Rx Ibuprofen [Motrin 800 MG tab] 800 mg PO Q8HR PRN #21 tablet 04/15/19 Unknown Rx Loperamide [Imodium] 2 mg PO Q2HR PRN #10 capsule 01/15/20 Unknown Rx Sucralfate [Carafate] 1 gm PO Q6HR 10 Days #40 tablet 01/15/20 Unknown Rx Sulfamethoxazole/Trimethoprim 1 each PO BID 5 Days #10 tablet 01/15/20 Unknown Rx [Bactrim DS TAB] Dicyclomine [Bentyl] 20 mg PO Q6H PRN #30 tablet 11/30/20 Unknown Rx Famotidine [Pepcid] 20 mg PO BID #60 tablet 11/30/20 Unknown Rx Ondansetron [Zofran Odt] 4 mg PO Q6HR PRN #20 tab.rapdis 11/30/20 Unknown Rx Pantoprazole [Protonix TAB] 40 mg PO QAM 10 Days #30 tablet 11/30/20 Unknown Rx Allergies Allergy/AdvReac Type Severity Reaction Status Date / Time coconut Allergy Anaphylaxis Verified 08/04/20 00:00 ED Review of Systems ROS: Stated complaint: FAINTED 2X/ BODY BODY Other details as noted in HPI Constitutional: malaise, weakness. denies: chills, fever Eyes: denies: eye pain, eye discharge, vision change ENT: denies: ear pain, throat pain Respiratory: denies: cough, shortness of breath, wheezing Cardiovascular: syncope (2 near syncopal episodes in 24 hours). denies: chest pain, palpitations Endocrine: no symptoms reported Gastrointestinal: abdominal pain (Epigastric pain), nausea, vomiting, diarrhea Genitourinary: denies: urgency, dysuria, discharge Musculoskeletal: denies: back pain, joint swelling, arthralgia Skin: denies: rash, lesions Neurological: denies: headache, weakness, paresthesias Psychiatric: denies: anxiety, depression Hematological/Lymphatic: denies: easy bleeding, easy bruising ED Past Medical Hx - Past Medical History Previous Medical History?: Yes Hx Hypertension: No Hx Diabetes: No Hx Deep Vein Thrombosis: No Hx Liver Disease: No Hx Renal Disease: No Hx Sickle Cell Disease: No Hx Seizures: No Hx Asthma: No Hx HIV: No Additional medical history: tubal 2006, right ovarian cyst - Surgical History Past Surgical History?: Yes Additional Surgical History: "tubal" "thigh surgery", Miscarriage, - Social History Smoking Status: Never Smoker Substance Use Type: Alcohol - Medications Home Medications: Home Medications Medication Instructions Recorded Confirmed Last Taken Type HYDROcodone/APAP 5-325 [[place] 1 each PO Q6HR PRN #20 tablet 03/11/18 Unknown Rx 5/325] Ibuprofen [Motrin] 800 mg PO Q8HR PRN #60 tablet 03/11/18 Unknown Rx Ibuprofen [Motrin 800 MG tab] 800 mg PO Q8HR PRN #21 tablet 04/15/19 Unknown Rx Loperamide [Imodium] 2 mg PO Q2HR PRN #10 capsule 01/15/20 Unknown Rx Sucralfate [Carafate] 1 gm PO Q6HR 10 Days #40 tablet 01/15/20 Unknown Rx Sulfamethoxazole/Trimethoprim 1 each PO BID 5 Days #10 tablet 01/15/20 Unknown Rx [Bactrim DS TAB] Dicyclomine [Bentyl] 20 mg PO Q6H PRN #30 tablet 11/30/20 Unknown Rx Famotidine [Pepcid] 20 mg PO BID #60 tablet 11/30/20 Unknown Rx Ondansetron [Zofran Odt] 4 mg PO Q6HR PRN #20 tab.rapdis 11/30/20 Unknown Rx Pantoprazole [Protonix TAB] 40 mg PO QAM 10 Days #30 tablet 11/30/20 Unknown Rx ED Physical Exam - General Limitations: No Limitations General appearance: alert, in no apparent distress - Head Head exam: Present: atraumatic, normocephalic, normal inspection - Eye Eye exam: Present: normal appearance, PERRL, EOMI Pupils: Present: normal accommodation - ENT ENT exam: Present: normal exam, normal orophraynx, mucous membranes moist, TM's normal bilaterally, normal external ear exam - Neck Neck exam: Present: normal inspection, full ROM - Respiratory Respiratory exam: Present: normal lung sounds bilaterally. Absent: respiratory distress, wheezes, rales, rhonchi, chest wall tenderness, accessory muscle use, prolonged expiratory - Cardiovascular Cardiovascular Exam: Present: regular rate, normal rhythm, normal heart sounds. Absent: systolic murmur, diastolic murmur, rubs, gallop - GI/Abdominal GI/Abdominal exam: Present: soft, tenderness (Palpable epigastric tenderness), normal bowel sounds. Absent: guarding, rebound, hyperactive bowel sounds, hypoactive bowel sounds, organomegaly - Extremities Exam Extremities exam: Present: normal inspection, full ROM, normal capillary refill - Back Exam Back exam: Present: normal inspection, full ROM. Absent: tenderness, CVA tenderness (R), CVA tenderness (L), muscle spasm, paraspinal tenderness, vertebral tenderness - Neurological Exam Neurological exam: Present: alert, oriented X3, CN II-XII intact, normal gait, reflexes normal - Psychiatric Psychiatric exam: Present: normal affect, normal mood, anxious - Skin Skin exam: Present: warm, dry, intact, normal color. Absent: rash ED Course Vital Signs 11/29/20 11/29/20 11/29/20 18:55 20:30 20:33 Temperature 99 F 98.8 F Pulse Rate 64 65 Pulse Rate [ Lying] Pulse Rate [ Sitting] Pulse Rate [ Standing] Respiratory 20 18 18 Rate Blood Pressure 97/62 Blood Pressure 114/71 [Left] Blood Pressure [Lying] Blood Pressure [Sitting] Blood Pressure [Standing] O2 Sat by Pulse 99 100 Oximetry 11/29/20 22:16 Temperature Pulse Rate Pulse Rate [ 48 L Lying] Pulse Rate [ 48 L Sitting] Pulse Rate [ 56 L Standing] Respiratory Rate Blood Pressure Blood Pressure [Left] Blood Pressure 96/65 [Lying] Blood Pressure 100/64 [Sitting] Blood Pressure 109/65 [Standing] O2 Sat by Pulse Oximetry ED Medical Decision Making - Lab Data Result diagrams: 11/29/20 19:41 11/29/20 19:41 - EKG Data EKG shows normal: sinus rhythm Rate: normal - EKG Data Interpretation: normal EKG 11/30/20 01:41 EKG shows sinus bradycardia with a ventricular rate of [address] or T wave abnormalities - Radiology Data Radiology results: report reviewed, image reviewed [facility] [address] [place] [address] XRay Report Signed Patient: CECY RAY MR#: [id number] : 1985 Acct:[id number] Age/Sex: 35 / F ADM Date: 11/29/20 Loc: ED Attending Dr: Ordering Physician: MARIE MATTHEWS Date of Service: 11/29/20 Procedure(s): XR chest 1V ap Accession Number(s): [id number] cc: MARIE MATTHEWS Fluoro Time In Minutes: CHEST 1 VIEW 11/29/2020 8:26 PM INDICATION / CLINICAL INFORMATION: DIZZINESS. COMPARISON: 06/23/14 FINDINGS: SUPPORT DEVICES: None. HEART / MEDIASTINUM: No significant abnormality. LUNGS / PLEURA: No significant pulmonary or pleural abnormality. No pneumothorax. ADDITIONAL FINDINGS: No significant additional findings. IMPRESSION: 1. No acute findings. Signer Name: Salena Cruz MD Signed: 11/29/2020 8:55 PM Workstation Name: [id number] Transcribed By: DT Dictated By: Sergio Cruz MD Electronically Authenticated By: Sergio Cruz MD Signed Date/Time: 11/29/202054 DD/ 53 TD/TT: Print - Medical Decision Making This is a 35-year-old -Swazi female with past medical history of GERD and who presents to the ED with complaint of acute onset persistent diffuse abd ominal pain that radiates to the epigastric area, nausea and vomiting with diarrhea for the last 2 days. Patient also complains of 2 near syncopal episodes in 24 hours while at home and at work. Patient states that the initial near syncopal episode occurred while she was upright walking at work in a hot environment and one of her colleagues at work to assist to lay down instead of falling. Patient states that the second near syncopal episode occurred prior to arrival in the ED while she was upright in the kitchen cooking and one of the family members had to help her out and settle down. Patient states that she has been feeling generalized weakness and persistent abdominal pain with nausea and vomiting. In the ED, patient is alert and oriented x3 and is not in any distress. Lab test results were reviewed and are all nonactionable including urinalysis. Chest x-ray shows no acute cardiopulmonary abnormalities or pneumonitis. Patient was treated in the ED with normal saline 1 L IV bolus x1, also given antacids, pain medications and antiemetics. EKG shows sinus bradycardia with a ventricular rate of 52 bpm. Patient's orthostatic vital signs are stable. On reevaluation, patient felt better, patient was discharged home on medications and was advised to drink plenty of fluids, take medications as needed and follow-up with the primary care physician in 5 to 7 days for reevaluation. Patient was advised to return to the ED immediately if symptoms get worse. - Differential Diagnosis GERD; gastroenteritis; anxiety; dehydration; Critical care attestation.: If time is entered above; I have spent that time in minutes in the direct care of this critically ill patient, excluding procedure time. ED Disposition Clinical Impression: Nausea, vomiting and diarrhea, Acute epigastric pain, Viral gastroenteritis, Vasovagal near-syncope GERD (gastroesophageal reflux disease) Qualifiers: Esophagitis presence: esophagitis presence not specified Qualified Code(s): K21.9 - Gastro-esophageal reflux disease without esophagitis Disposition: 01 HOME / SELF CARE / HOMELESS Is pt being admited?: No Does the pt Need Aspirin: No Condition: Stable Instructions: Abdominal Pain (ED), Viral Gastroenteritis, Adult, [id number], Abdominal Pain, Adult, [id number], Gastroesophageal Reflux Disease, Adult, [id number], Near-Syncope, Ixqh-xs-Rqac, Nausea and Vomiting, Adult, Yynl-[id number] Additional Instructions: All lab test results were reviewed and are all nonactionable. Chest x-ray shows no acute cardiopulmonary abnormalities or pneumonitis. EKG shows sinus bradycardia, with no acute abnormalities. Your symptoms are likely due to viral gastroenteritis, complicated by chronic and treated GERD. Therefore doing plenty of fluids, take medication as advised, follow-up with your primary care physician in 5 to 7 days for reevaluation. Return to the ED immediately if symptoms get worse. Prescriptions: Dicyclomine [Bentyl] 20 mg PO Q6H PRN #30 tablet PRN Reason: Abdominal pain Famotidine [Pepcid] 20 mg PO BID #60 tablet Pantoprazole [Protonix TAB] 40 mg PO QAM 10 Days #30 tablet Ondansetron [Zofran Odt] 4 mg PO Q6HR PRN #20 tab.rapdis PRN Reason: Nausea Referrals: [facility] [Provider Group] - 3-5 Days Forms: Work/School Release Form(ED) Time of Disposition: 01:46 Print Language: ICELANDIC
[2020-11-30] MEDS ORDERED: ONDANSETRON 4 MG/2 ML INJ IV ONE (01:43)
[2020-11-30] MEDS ORDERED: SUCRALFATE 1 GM TAB PO ONE (01:43)
[2020-11-30] MEDS ORDERED: MORPHINE 4 MG/1 ML INJ IV ONE (01:43)
[2020-11-30] MEDS ORDERED: KETOROLAC 30 MG/1 ML INJ IV ONE (01:44)
--- NOTE | 2020-12-01 08:57 | Electrocardiograph Report ---
[facility] Test Date: 2020-11-29 Test Time: 19:49:03 Pat Name: CECY RAY Department: Room: Gender: F C Architect: ESTELITA : 1985 Requested By: MINDI BASSETT Order Number: [id number] Reading MD: Omari Palacios Measurements Intervals [place] Rate: 52 P: 40 ME: 165 QRS: 74 QRSD: 74 T: 60 QT: 402 QTc: 373 Interpretive Statements Sinus bradycardia ST elev, probable normal early repol pattern No previous ECG available for comparison Electronically Signed On 12-01-2020 8:56:45 EDT by Omari Palacios
== END 2020-11-30 03:05 | disposition home or self-care (01) ==
LOC: ED 18:25
DX: K21.9 Gastro-esophageal reflux disease without esophagitis (principal); A08.4 Viral intestinal infection, unspecified; R11.2 Nausea with vomiting, unspecified; R19.7 Diarrhea, unspecified; R10.13 Epigastric pain; R55 Syncope and collapse; Z79.899 Other long term (current) drug therapy; Z91.018 Allergy to other foods; Z98.890 Other specified postprocedural states; Z98.51 Tubal ligation status
CPT/HCPCS: 36415; 71045; 80053; 81001; 83690; 84484; 84703; 85025; 93005; 96361; 96374; 96375; 96376; 99284; J1885; J2405; J7030

== ENCOUNTER 2021-02-07 21:28 | Emergency (ER) | payer OTHER ==
[2021-02-07 22:43] VITALS: BP 108/52
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
[2021-02-07] MEDS ORDERED: ACETAMINOPHEN 500 MG TAB PO ONE (22:57)
[2021-02-07] MEDS ORDERED: IBUPROFEN 600 MG TAB PO ONE (22:57)
== END 2021-02-08 00:20 | disposition home or self-care (01) ==
LOC: ED 21:28
DX: S29.012A Strain of muscle and tendon of back wall of thorax, initial encounter (principal); J02.8 Acute pharyngitis due to other specified organisms; Z91.018 Allergy to other foods; V89.2XXA Person injured in unspecified motor-vehicle accident, traffic, initial encounter; Y92.415 Exit ramp or entrance ramp of street or highway as the place of occurrence of the external cause; Y93.89 Activity, other specified; Y99.9 Unspecified external cause status
CPT/HCPCS: 99282

== ENCOUNTER 2021-05-26 03:47 | Emergency (ER) | payer OTHER ==
[2021-05-26 08:06] VITALS: BP 109/74
[2021-05-26 09:00] LABS: Bilirubin,Urine NEG (Negative); Blood,Urine SM (Negative); Color,Urine Yellow (Yellow); Protein,Urine <15 mg/dL mg/dL (Negative); Urobilinogen,Urine < 2.0 mg/dL (<2.0)
[2021-05-26 09:01] LABS: RBC,Urine < 1.0 /HPF (0.0-6.0); WBC,Urine < 1.0 /HPF (0.0-6.0)
[2021-05-26 09:02] LABS: HCG Qualitative,Urine Negative (Negative)
--- NOTE | 2021-05-26 09:06 | Emergency Department Report ---
ED Dysuria HPI - HPI Chief Complaint: Abdominal Pain Stated Complaint: ABD PAIN X 1 WK, DICHARGE Time Seen by Provider: 05/26/21 08:35 Location of Discomfort: Other Severity: Mild Symptoms: Dysuria: No, Frequency: No, Suprapubic Pain: No, Flank Pain: No, Fever: No, Hematuria: No, Abdominal Pain: Yes, Previous UTI's: Yes Other History: 35 yo comes to ER with a/c llq pain. no fever. no chills. no n/v/d. States she has not been able to see GI that we referred her to due to harvey. She then adds she has hx bv and d/c. She has not seen obgyn. she then adds lmp 04/12 and she did not do home preg test ED Review of Systems ROS: Stated complaint: ABD PAIN X 1 WK, DICHARGE Other details as noted in HPI Comment: All other systems reviewed and negative ED Past Medical Hx - Past Medical History Previous Medical History?: Yes Hx Hypertension: No Hx Diabetes: No Hx Deep Vein Thrombosis: No Hx Liver Disease: No Hx Renal Disease: No Hx Sickle Cell Disease: No Hx Seizures: Yes Hx Asthma: No Hx HIV: No Additional medical history: tubal 2006, right ovarian cyst - Surgical History Additional Surgical History: "tubal" "thigh surgery", Miscarriage, - Family History Family history: no significant - Social History Smoking Status: Unknown if ever smoked Substance Use Type: None - Medications Home Medications: Home Medications Medication Instructions Recorded Confirmed Last Taken Type HYDROcodone/APAP 5-325 [[place] 1 each PO Q6HR PRN #20 tablet 03/11/18 Unknown Rx 5/325] Ibuprofen [Motrin] 800 mg PO Q8HR PRN #60 tablet 03/11/18 Unknown Rx Ibuprofen [Motrin 800 MG tab] 800 mg PO Q8HR PRN #21 tablet 04/15/19 Unknown Rx Loperamide [Imodium] 2 mg PO Q2HR PRN #10 capsule 01/15/20 Unknown Rx Sucralfate [Carafate] 1 gm PO Q6HR 10 Days #40 tablet 01/15/20 Unknown Rx Sulfamethoxazole/Trimethoprim 1 each PO BID 5 Days #10 tablet 01/15/20 Unknown Rx [Bactrim DS TAB] Dicyclomine [Bentyl] 20 mg PO Q6H PRN #30 tablet 11/30/20 Unknown Rx Famotidine [Pepcid] 20 mg PO BID #60 tablet 11/30/20 Unknown Rx Ondansetron [Zofran Odt] 4 mg PO Q6HR PRN #20 tab.rapdis 11/30/20 Unknown Rx Pantoprazole [Protonix TAB] 40 mg PO QAM 10 Days #30 tablet 11/30/20 Unknown Rx Azithromycin [Zithromax Z-PHU] 250 mg PO DAILY #6 tablet 02/07/21 Unknown Rx Baclofen 20 mg PO Q12H PRN #24 tablet 02/07/21 Unknown Rx Ibuprofen [Motrin] 800 mg PO Q8HR PRN #30 tablet 02/07/21 Unknown Rx Lidocaine Viscous 2% 10 ml PO Q6H PRN #120 ml 02/07/21 Unknown Rx Dysuria Exam - Exam General: Vital signs noted. No distress. Alert and acting appropriately. Exam: Yes Moist Mucous Membranes, No CVA Tenderness, No Abdominal Tenderness, No Rigidity or Guarding Labs: Lab Results 05/26/21 Range/Units Unknown Urine Color Yellow (Yellow) Urine Turbidity Clear (Clear) Urine pH 6.0 (5.0-7.0) Ur Specific [place] 1.020 (1.003-1.030) Urine Protein <15 mg/dl (Negative) mg/dL Urine Glucose (UA) Neg (Negative) mg/dL Urine Ketones Neg (Negative) mg/dL Urine Blood Sm (Negative) Urine Nitrite Neg (Negative) Urine Bilirubin Neg (Negative) Urine Urobilinogen < 2.0 (<2.0) mg/dL Ur Leukocyte Esterase Sm (Negative) Urine WBC (Auto) < 1.0 (0.0-6.0) /HPF Urine RBC (Auto) < 1.0 (0.0-6.0) /HPF Urine HCG, Qual Negative (Negative) ED Course Vital Signs 05/26/21 08:04 Temperature 98.2 F Pulse Rate 58 L Respiratory 18 Rate Blood Pressure 109/74 [Right] O2 Sat by Pulse 100 Oximetry ED Medical Decision Making - Medical Decision Making Lab Results 05/26/21 Range/Units Unknown Urine Color Yellow (Yellow) Urine Turbidity Clear (Clear) Urine pH 6.0 (5.0-7.0) Ur Specific [place] 1.020 (1.003-1.030) Urine Protein <15 mg/dl (Negative) mg/dL Urine Glucose (UA) Neg (Negative) mg/dL Urine Ketones Neg (Negative) mg/dL Urine Blood Sm (Negative) Urine Nitrite Neg (Negative) Urine Bilirubin Neg (Negative) Urine Urobilinogen < 2.0 (<2.0) mg/dL Ur Leukocyte Esterase Sm (Negative) Urine WBC (Auto) < 1.0 (0.0-6.0) /HPF Urine RBC (Auto) < 1.0 (0.0-6.0) /HPF Urine HCG, Qual Negative (Negative) Vital Signs 05/26/21 08:04 Temperature 98.2 F Pulse Rate 58 L Respiratory 18 Rate Blood Pressure 109/74 [Right] O2 Sat by Pulse 100 Oximetry a/c issue exam wnl ua noted preg neg long discussion with pt p review of EMR- she needs GI follow up for her chronic abd pain. Additional referral given. dc home with dc plan of care including follow up with pcp/ob and GI. She verbalizes understanding of plan of care. - Differential Diagnosis ro uti/preg Critical care attestation.: If time is entered above; I have spent that time in minutes in the direct care of this critically ill patient, excluding procedure time. ED Disposition Clinical Impression: Abdominal pain Qualifiers: Abdominal location: unspecified location Qualified Code(s): R10.9 - Unspecified abdominal pain Disposition: 01 HOME / SELF CARE / HOMELESS Is pt being admited?: No Does the pt Need Aspirin: No Condition: Stable Instructions: Abdominal Pain (ED) Additional Instructions: follow up as we discussed let them know youve had imaging and tests here and they can get results Referrals: JOSE GOMEZ MD [Staff Physician] - 3-5 Days CARLOS DOMINGUEZ MD [Staff Physician] - 3-5 Days CHRIS DE GUZMAN MD [Staff Physician] - 3-5 Days Time of Disposition: 09:06
== END 2021-05-26 09:23 | disposition home or self-care (01) ==
LOC: ED 03:47
DX: R10.9 Unspecified abdominal pain (principal)
CPT/HCPCS: 81001; 81025; 99283